=== PATIENT | male | born 1955 | race Caucasian/White ===

== ENCOUNTER 2017-01-07 13:15 | Inpatient (IN) | payer OTHER ==
[2017-01-07] MEDS ORDERED: NS 1,000 ML IV ONE (13:20)
[2017-01-07] MEDS ORDERED: ASPIRIN EC 325 MG TAB PO ONE ×2 (13:20→13:46)
[2017-01-07] MEDS ORDERED: FAMOTIDINE 20 MG TAB PO ONE (13:20)
[2017-01-07] MEDS ORDERED: DIAZEPAM 5 MG TAB PO ONE (13:20)
[2017-01-07] MEDS ORDERED: diphenhydrAMINE 25 MG CAP PO ONE ×2 (13:20→13:46)
--- NOTE | 2017-01-07 13:38 | CPEKG ---
Heart Rate: 66 RR Interval: 909 P-R Interval: 156 QRSD Interval: 152 QT Interval: 436 QTC Interval: 457 P [place]: 3 QRS [place]: -67 T Wave [place]: 48 EKG Severity - ABNORMAL ECG - EKG Impression: SINUS RHYTHM EKG Impression: RBBB AND LAFB EKG Impression: LATERAL INFARCT, OLD Electronically Signed By: Leonardo Beaver 08-Jan-2017 12:00:22
[2017-01-07] MEDS ORDERED: DIAZEPAM 5 MG TAB ONE (13:46)
[2017-01-07] MEDS ORDERED: FAMOTIDINE 20 MG TAB ONE (13:46)
[2017-01-07 13:52] LABS: % IMMATURE GRANULYOCYTES 0.3 % (0.0-1.1); ABSOLUTE IMMATURE GRANULOCYTES 0.02 10^3/uL (0.00-0.10); ADD DIFF? NO; ADD MORPH? NO; ADD SCAN? NO; ATYPICAL LYMPHOCYTE FLAG 0 (0-99); FRAGMENT RBC FLAG 0 (0-99); HEMATOCRIT 50.1 % (40.0-51.0); HEMOGLOBIN 16.4 g/dL (13.7-17.5); LEFT SHIFT FLG 0 (0-99); LIPEMIA HEMOLYSIS FLAG 80 (0-99); MEAN CELL HEMOGLOBIN 29.2 pg (27.9-34.1); MEAN CELL HEMOGLOBIN CONCENTR. 32.7 g/dL (32.4-36.7); MEAN CELL VOLUME 89.1 fL (81.5-99.8); MEAN PLATELET VOLUME 9.8 fL (8.7-11.7); PLATELET CLUMPS FLAG 0 (0-99); PLATELET COUNT 238 10^3/uL (150-400); RED BLOOD CELL COUNT 5.62 10^6/uL (4.40-6.38)
[2017-01-07 14:01] LABS: INR 0.98 (0.83-1.16); PROTIME(PATIENT) 12.9 SEC (12.0-15.0)
[2017-01-07] MEDS ORDERED: LIDOCAINE 1% 300 MG/30 ML SDV ONE (14:07)
[2017-01-07] MEDS ORDERED: fentaNYL 100 MCG/2 ML INJ ONE (14:07)
[2017-01-07] MEDS ORDERED: MIDAZOLAM 2 MG/2 ML VIAL ONE (14:07)
[2017-01-07] MEDS ORDERED: VERAPAMIL 5 MG/2 ML VIAL ONE (14:07)
[2017-01-07] MEDS ORDERED: IOPAMIDOL (ISOVUE-370) 150 ML BTL IV ONE (14:08)
[2017-01-07] MEDS ORDERED: HEPARIN 10,000 UNIT/10 ML MDV ONE (14:08)
[2017-01-07 14:12] LABS: ANION GAP 14 mEq/L (8-16); CARBON DIOXIDE 22 mEq/l (22-31); CHLORIDE 107 mEq/L (97-110); CHOLESTEROL 220 mg/dL (140-220); CHOLESTEROL/HDL RATIO 3.38 RATIO (1.00-4.97); CREATININE 0.9 mg/dL (0.7-1.3); GLOMERULAR FILTRATION RATE > 60; GLUCOSE 97 mg/dL (70-100); HIGH DENSITY LIPOPROTEIN 65 mg/dL (40-65); LDL/HDL RATIO 2.23 RATIO (1.00-3.64); LOW DENSITY LIPOPROTEIN 145 mg/dL (80-100); MAGNESIUM 2.3 mg/dL (1.6-2.3); NON-HIGH DENSITY LIPOPROTEIN 155 mg/dL (90-129); POTASSIUM 4.5 mEq/L (3.5-5.2); SODIUM 143 mEq/L (134-144); TRIGLYCERIDE 54 mg/dL (40-150); VERY LOW DENSITY LIPOPROTEINS 10 mg/dL (8-25)
[2017-01-07] MEDS ORDERED: ONDANSETRON DISINTEGRATING 4 MG TAB PO PRN (17:50)
[2017-01-07] MEDS ORDERED: ONDANSETRON 4 MG/2 ML VIAL IVP PRN (17:50)
[2017-01-07] MEDS ORDERED: NITROGLYCERIN 0.4 MG BTL SL PRN (17:50)
[2017-01-07] MEDS ORDERED: ATROPINE SULFATE 1 MG/10 ML SYR IVP PRN (17:50)
--- NOTE | 2017-01-07 19:59 | CPIP ---
[f rep st] INVASIVE CARDIAC PROCEDURE DATE OF PROCEDURE: 01/07/2017 PROCEDURE PERFORMED: 1. Selective coronary angiography. 2. Left heart catheterization. 3. Left ventriculogram. 4. TR band arteriotomy repair. COMPLICATIONS: None. This is a right wrist approach. INDICATIONS/APPROPRIATE USE CRITERIA: The patient has had unstable angina with CCS Class 4 symptoms of angina and is suspected to have an unstable coronary circulation. The indication for the cathet erization is unstable angina and probably preinfarction angina. PROCEDURE IN DETAIL: After informed consent was obtained and n.p.o. status was confirmed, the regio n of the right wrist was cleaned, prepped, and draped in sterile fashion. Approximately 5 cc of 1% lidocaine were utilized for local anesthesia. The patient then underwent the previously mentioned d iagnostic procedure with use of JR4, JL3.5, and a 5-Bulgarian pigtail catheter. Standard wire exchange technique was utilized for all catheter exchanges. The right coronary artery is dominant giving rise to the posterior descending and posterolateral ketty tricular branches. It is a large vessel approximately 3.5 mm in size proximally without evidence of flow-limiting obstruction, dissection, or thrombus. The left main coronary lumen is approximately 5 mm in size and trifurcate into an LAD, circumflex, and ramus system. There is severe ostial disea se of all 3 of those blood vessels making his coronary anatomy consistent with a left main equivalen t. There is at least a 70% to 80% LAD lesion, a 90% ostial ramus intermedius stenosis, and an 85% o stial left circumflex lesion. There is HIEU-3 flow to all of the blood vessels. The LAD diagonal i s the largest blood vessel in the anterior and anterolateral wall and is approximately 3 mm in size. After the diagonal takes off from the LAD, there is an ostial LAD lesion, which is at least 70% to 80% stenosed with more diffuse disease distal to that lesion, after which, the vessel is quite smal l and approximately 2 mm in size and may be partially intramyocardial, although obviously that is di fficult to tell with selective angiography. The left circumflex gives rise to an important obtuse m arginal branch, which is severely disease downstream as well with a 70% to 80% lesion involving the circumflex just as it exits the AV groove. The patient underwent left heart catheterization demonstrating elevated left ventricular end-diastol ic pressure measured at 29 mmHg. The patient underwent left ventriculogram in the BROUSSARD projection de monstrating preserved left ventricular systolic function and ejection fraction 65%. No resting segm ental wall motion abnormalities are identified. There is evidence of mitral regurgitation, which is likely catheter induced and also related to the pressurized left ventricular injection. FINAL IMPRESSION: Severe resighini vessel coronary disease primarily involving the left coronary syste m with ostial obstruction of the left anterior descending, a small ramus intermedius, and a circumfl ex obtuse marginal system. I would recommend that the patient have a consultation for reverse saphe nous vein graft to the circumflex obtuse marginal, reverse saphenous vein graft bypass to the diagon al, left internal mammary artery to the left anterior descending, and consideration of bypass of the small ramus intermedius vessel. Because of the patient's stuttering pain at rest, I do think he sh ould be admitted over January 08 and planned for subcutaneous Lovenox in full cardiovascular dos es at 1 mg/kg subcu b.i.d. That should be initiated tomorrow as he did receive heparin during this procedure and plan for a bypass surgery sometime on Saturday, sooner if the patient has further sym ptoms of unstable angina at rest that cannot be controlled with medication. /[id number]/MODL
[2017-01-08 05:46] LABS: INR 1.01 (0.83-1.16); PROTIME(PATIENT) 13.2 SEC (12.0-15.0)
[2017-01-08 05:47] LABS: APTT 26.4 SEC (23.0-38.0)
[2017-01-08 06:16] LABS: COLOR PALE YELLOW; LEUKOCYTE ESTERASE,URINE NEGATIVE (NEGATIVE); NITRITE,URINE NEGATIVE (NEGATIVE)
--- NOTE | 2017-01-08 06:38 | CPEKG ---
Heart Rate: 62 RR Interval: 968 P-R Interval: 156 QRSD Interval: 148 QT Interval: 440 QTC Interval: 447 P [place]: 12 QRS [place]: -66 T Wave [place]: 46 EKG Severity - ABNORMAL ECG - EKG Impression: SINUS RHYTHM EKG Impression: RBBB AND LAFB EKG Impression: LATERAL INFARCT, OLD Electronically Signed By: Leonardo Beaver 08-Jan-2017 12:00:27
[2017-01-08] MEDS: LISINOPRIL 40 MG TAB PO SCH (08:54)
[2017-01-08] MEDS: ASPIRIN 81 MG CHEWABLE TAB PO SCH (08:54)
--- NOTE | 2017-01-08 10:05 | GCON ---
[f rep st] CONSULTATION DATE OF CONSULTATION: 01/08/2017 Patient seen at the request of Dr. Roche with the patient's permission. IMPRESSION: 1. Class 3 to 4 angina pectoris with severe 2-vessel disease. 2. Obesity. 3. Likely non-insulin dependent diabetes mellitus. 4. Cerebrovascular accident. 5. History of bifascicular block. RECOMMENDATIONS: This gentleman should undergo coronary artery revascularization on this admission. Forty-five minutes was spent discussing it with the patient at length. Risks and complications we re reviewed per consult. CHIEF COMPLAINT: This is a gentleman who began experiencing exertional chest discomfort and arm num bness approximately 6 weeks ago. He has had a half a dozen episodes with activity. He attributed i t to indigestion and during his visit with Sol Roe, described the discomfort which subsequentl y led to catheterization. MEDICAL HISTORY: As stated. SURGERIES: He has no prior surgeries. ALLERGIES: Denied. SOCIAL HISTORY: He smoked for approximately 12 years, quitting in the 1980s. 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 FAMILY HISTORY: Noncontributory. He is adopted and knows nothing about his natural parents. REVIEW OF SYSTEMS: At the present time, he admits to slight chest discomfort at rest. He denies sh ortness of breath. All other systems are unremarkable. PHYSICAL EXAMINATION: GENERAL: This is a moderately overweight, middle-aged gentleman, sitting upr ight, quite pleasant, in no apparent distress. VITAL SIGNS: 160/88, heart rate 72, respirations 19, O2 saturation was 94% on room air. Carotid ultrasound reveals 50% to 69% left internal carotid stenosis by ultrasound, 70% to 89% right internal carotid stenosis by ultrasound with severe calcific plaque noted bilaterally. Vertebrals showed antegrade flow. Chest x-ray is pending. CAT scan of the carotids is pending. EKG reveals s inus rhythm with right bundle and left anterior fascicular block and old lateral infarct. Please se e cath report for details. /[id number]/MODL
[2017-01-08] MEDS ORDERED: IOPAMIDOL (ISOVUE 370) 100 ML BTL IV ONE (10:26)
--- NOTE | 2017-01-08 11:23 | ECHO ---
[id number] + + [address] : : [place] [address] : : [phone] + + Adult Echocardiographic Report + ---+ :Name: TAVIA GOODE JStudy Date: 01/08/2017 10:02 AM : : Hospital Admission Number: [id number] : :: 1955 Gender: Male Height: 73 in : :Age: 61 yrs Race: WH Weight: 225 l b : :Reason For Study: Eval LV Fx : : BSA: 2.3 mete rs2: :History: Chest Pain : + ---+ MMode/2D Measurements \T\ Calculations IVSd: 1.0 cm LVIDd: 4.1 cm FS: 39.9 % Ao root diam: 3.0 cm LVPWd: 1.0 cm LVIDs: 2.5 cm EDV(Teich): 74.2 ml ACS: 1.5 cm ESV(Teich): 21.5 ml EF(Teich): 71.0 % Normal Measurement Values: + + :LVIDd (3.5-5.7cm) IVSd (0.6-1.1cm) LVPWd (0.6-1.1cm) Aortic Root (2.0-3.7cm)Left Atrium (1.5-4.0cm): :LV Vol(d) (76-115ml) LV Vol(s) (29-48ml) Ejec Fraction (50-65%)PV José (0.6- 1.2m/s) TV José (0.4-1.0m/s) : :MV E José (0.8-1.0m/s)MV A José (0.3-1.0m/s)LVOT José (0.7-1.2m/s) Asc Ao José ( 0.9-1.8m/s) : + + Doppler Measurements \T\ Calculations MV E max josé: 77.5 cm/sec PA V2 max: 103.2 cm/sec MV A max josé: 78.0 cm/sec PA max P.3 mmHg MV E/A: 0.99 Left Ventricle The left ventricle is normal in size and function. There is normal left ventricular wall thickness. The left ventricular ejection fraction is normal. There is Doppler evidence for diastolic dysfunction. Ejection Fraction = 71%. No regional wall motion abnormalities noted. Right Ventricle The right ventricle is normal in size and function. Atria The left atrial size is normal. Right atrial size is normal. Mitral Valve There is mild mitral annular calcification. There is no mitral regurgitation noted. Tricuspid Valve Normal tricuspid valve. There is trace tricuspid regurgitation. Right ventricular systolic pressure is normal. Aortic Valve The aortic valve is normal in structure and function. There is no aortic stenosis. There is no aortic insufficiency. Pulmonic Valve The pulmonic valve is not well visualized. There is no pulmonic valvular regurgitation. Great Vessels The aortic root is normal size. Pericardium/Pleural There is no pericardial effusion. Conclusion A complete two-dimensional transthoracic echocardiogram was performed (2D, M-mode, Doppler and color flow Doppler). Clinical correlation is recommended. (1) Left ventricular systolic ejection fraction was normal (>70%) - normal wall motion (2) No left ventricular hypertrophy (3) Diastolic dysfunction was present (4) Normal right ventricular size and function (5) Normal atrial dimensions (6) Mild mitral annular calcification (no stenosis) with no appreciable regurgitation (7) Trileaflet aortic valve without sclerosis or insufficiency (8) Physiologic tricuspid regurgitation - RVSP was within normal limits (9) Poor visualization of the pulmonic valve (10) No comparison echocardiograms Final Reading Physician: Surya Jackson signed on 01/08/2017 11:22 AM Ordering Physician: Emmett Roche Performed By: Natanael Muller, LATASHACS
--- NOTE | 2017-01-08 13:02 | PDCARPN ---
Cardiology Progress Note Chief Complaint: obstructive CAD Assessment/Plan: Assessment: 1. Obstructive CAD in essence left main equivalent will need bypass surgery. 2. Carotid disease by ultrasound... CT angio is pending Dr. Maurer will decide about that issue prior to surgery tomorrow... 3. sub conjunctival hemorrhage in left eye.... painless Plan: As Above. 01/08/17 12:54 Reviewed/Discussed With: family, hospitalist, multidisciplinary team Time Spent With Patient: 30 with family patient etc.... Objective: Vital Signs (8 Hrs) Temp Pulse Resp BP Pulse Ox 01/08/17 12:00 36.7 C 71 17 130/93 H 96 01/08/17 08:00 36.6 C 72 19 160/88 H 94 Intake/Output (24 Hrs) 01/07/17 01/08/17 01/09/17 05:59 05:59 05:59 Intake Total 530 Output Total 100 Balance 430 Intake: Oral (ml) 530 Output: Urine (ml) 100 Urinal 100 Other: Weight 102.2 kg Number of Voids Toilet 2 Result Diagrams: 01/07/17 13:45 01/07/17 13:45 - Physical Exam Constitutional: WDWN, no apparent distress Ears, Nose, Mouth, Throat: moist mucous membranes, other (sub conjunctival hemorrhage) Cardiovascular: regular rate and rhythm, no murmurs, no rubs, other (radial cath site good pulse and no significant bleeding), No carotid bruit (i did not hear a buit over either carotid) Respiratory: clear to auscultate bilat Gastrointestinal: normoactive bowel sounds, no tenderness Neurologic: AAOx3 Psychiatric: cooperative, interactive, following commands, not anxious - . Pending Discharge Within 24 Hours: No Pending Discharge Within 48 Hours: No ICD10 Worksheet Patient Problems: Problems Problem Status Onset CAD (coronary artery disease) Acute
[2017-01-08] MEDS: MUPIROCIN 2% 22 GM OINT NS SCH (20:15)
[2017-01-08] MEDS ORDERED: NITROGLYCERIN/DEXTROSE 250 ML IV PRN (21:00)
[2017-01-08] MEDS ORDERED: CHLORHEXIDINE GLUC HIBICLENS 118 ML BTL TP SCH (21:00)
[2017-01-09 04:59] LABS: ANION GAP 8 mEq/L (8-16); CALCIUM 9.5 mg/dL (8.5-10.4); CARBON DIOXIDE 24 mEq/l (22-31); CHLORIDE 110 mEq/L (97-110); CREATININE 0.9 mg/dL (0.7-1.3); GLOMERULAR FILTRATION RATE > 60; GLUCOSE 101 mg/dL (70-100); POTASSIUM 4.3 mEq/L (3.5-5.2); SODIUM 142 mEq/L (134-144)
[2017-01-09] MEDS ORDERED: ALBUMIN 5% 250 ML BOTTLE IV ONE (06:41)
[2017-01-09] MEDS ORDERED: PROTAMINE SULFATE 50 MG/5 ML VIAL IVP ONE ×2 (06:41→16:55)
[2017-01-09] MEDS ORDERED: ADENOSINE 6 MG/2 ML VIAL ONE (06:42)
[2017-01-09] MEDS ORDERED: niCARdipine/NACL/200 ML BAG IV ONE (06:42)
[2017-01-09] MEDS ORDERED: CALCIUM CHLORIDE 1 GM/10 ML INJ ONE (06:42)
[2017-01-09] MEDS ORDERED: MILRINONE/DEXTROSE/100 ML BAG IV ONE (06:42)
[2017-01-09] MEDS ORDERED: MAGNESIUM SULFATE 1 GM/2 ML VIAL ONE (06:42)
[2017-01-09] MEDS ORDERED: AMINOCAPROIC ACID 5 GM/20 ML VIAL ONE (06:42)
[2017-01-09] MEDS ORDERED: NA BICARBONATE 50 MEQ/50 ML VIAL ONE (06:42)
[2017-01-09] MEDS ORDERED: DOPamine/DEXTROSE/250 ML BAG IV ONE (06:42)
[2017-01-09] MEDS ORDERED: LIDOCAINE 2% 100 MG/5 ML SYR ONE (06:42)
[2017-01-09] MEDS ORDERED: CITRATE DEXTROSE SOLN 500 ML BAG ONE (06:42)
[2017-01-09] MEDS ORDERED: POTASSIUM Cl (KCl) 20 MEQ/50 ML BAG IV ONE (06:42)
[2017-01-09] MEDS ORDERED: AMIODARONE HCL 150 MG/3 ML VIAL ONE (06:42)
[2017-01-09] MEDS ORDERED: methylPREDNISolone SOD SUCC 1 GM/8 ML VIAL ONE (06:42)
[2017-01-09] MEDS ORDERED: HEPARIN 10,000 UNIT/10 ML MDV ONE (06:43)
[2017-01-09] MEDS ORDERED: ceFAZolin 1 GM VIAL ONE (06:43)
[2017-01-09] MEDS: ASPIRIN 81 MG CHEWABLE TAB PO SCH (10:06)
[2017-01-09] MEDS: LISINOPRIL 40 MG TAB PO SCH (10:06)
[2017-01-09] MEDS: MUPIROCIN 2% 22 GM OINT NS SCH ×2 (10:09→22:45)
[2017-01-09] MEDS ORDERED: PAPAVERINE HCL 60 MG/2 ML SDV ONE (10:12)
[2017-01-09] MEDS ORDERED: VERAPAMIL 5 MG/2 ML VIAL ONE (10:12)
[2017-01-09] MEDS ORDERED: MINERAL OIL 10 ML VIAL ONE (10:12)
[2017-01-09] MEDS ORDERED: niCARdipine/NACL 200 ML IV ONE (11:30)
[2017-01-09] MEDS ORDERED: CITRATE DEXTROSE SOLN 500 ML BAG MISC ONE (11:30)
[2017-01-09] MEDS ORDERED: AMINOCAPROIC ACID 5 GM/20 ML VIAL IV ONE (11:30)
[2017-01-09] MEDS ORDERED: MANNITOL 25% 12.5 GM/50 ML VIAL IV ONE (11:30)
[2017-01-09] MEDS ORDERED: ceFAZolin 2 GM/DEXTROSE 100 ML IV ONE (11:30)
[2017-01-09] MEDS ORDERED: PHENYLEPHRINE HCL 50 MG in NS 250 ML IV ONE (11:30)
[2017-01-09] MEDS ORDERED: NOREPINEPHRINE BITARTRATE 16 MG in NS 250 ML IV ONE (11:30)
[2017-01-09] MEDS ORDERED: INSULIN REGULAR HUMAN 100 UNIT in NS 100 ML IV ONE (11:30)
[2017-01-09] MEDS ORDERED: NS 1,000 ML IV ONE (11:30)
[2017-01-09] MEDS ORDERED: SODIUM BICARBONATE 20 MEQ, LIDOCAINE 1% 10 ML in NORMOSOL-R 1,000 ML MISC ONE (11:30)
[2017-01-09] MEDS ORDERED: VERAPAMIL 5 MG, NITROGLYCERIN 2.5 MG, HEPARIN 500 UNIT, SODIUM BICARBONATE 0.2 MEQ in L... MISC ONE (11:30)
[2017-01-09 12:31] LABS: HEMOGLOBIN A1C 6.2 % (4.0-6.0)
[2017-01-09] MEDS ORDERED: MIDAZOLAM 2 MG/2 ML VIAL ONE ×2 (13:15→13:29)
--- NOTE | 2017-01-09 13:21 | PDANEPAE ---
ANE History of Present Illness here for CABG ANE Past Medical History - Cardiovascular History Hx Hypertension: Yes Hx Arrhythmias: No Hx Chest Pain: Yes Hx Coronary Artery / Peripheral Vascular Disease: Yes Hx CHF / Valvular Disease: No Hx Palpitations: No - Pulmonary History Hx COPD: No Hx Asthma/Reactive Airway Disease: No Hx Recent Upper Respiratory Infection: No Hx Oxygen in Use at Home: No Hx Sleep Apnea: Yes Sleep Apnea Screening Result - Last Documented: Positive - Endocrine History Hx Diabetes: No Hypothyroid: No Hyperthyroid: No Obesity: no, moderate - Renal History Hx Renal Disorders: No - Liver History Hx Hepatic Disorders: No - Neurological & Psychiatric Hx Hx Neurological and Psychiatric Disorders: No - Cancer History Hx Cancer: No - GI History Hx Gastrointestinal Disorders: No - Chronic Pain History Chronic Pain: No ANE Review of Systems Review of systems is: negative - Exercise capacity Exercise capacity: <4 METS ANE Patient History - Allergies Allergies/Adverse Reactions: No Known Allergies Allergy (Unverified 01/27/10 19:58) - Home Medications Home medications: home medication list seen and reviewed Home Medications: Aspirin [Aspirin 81mg (*)] 81 mg PO DAILY 01/07/17 [Last Taken 01/07/17 05:30] Lisinopril [Zestril 40 mg (*)] 40 mg PO DAILY 01/07/17 [Last Taken 01/07/17 05: 30] Loratadine [Claritin 10 mg] 10 mg PO DAILY 01/07/17 [Last Taken 01/07/17] Multivitamins [Multivitamin (*)] 1 each PO DAILY 01/07/17 [Last Taken 01/07/17] - NPO status NPO Status: no food or drink >8 hours NPO Since - Liquids (Date): 01/08/17 NPO Since - Liquids (Time): 00:00 NPO Since - Solids (Date): 01/08/17 NPO Since - Solids (Time): 00:00 - Smoking Hx Smoking Status: Former smoker ANE Labs/Vital Signs - Labs Result Diagrams: 01/07/17 13:45 01/09/17 04:15 - Vital Signs Blood Pressure: 121/72 Heart Rate: 74 Respiratory Rate: 14 O2 Sat (%): 94 Height: 185 cm Weight: 99.7 kg ANE Physical Exam - Airway Neck exam: FROM Mallampati Score: Class 2 Mouth exam: normal dental/mouth exam - Pulmonary Pulmonary: no respiratory distress - Cardiovascular Cardiovascular: regular rate and rhythym - ASA Status ASA Status: IV ANE Anesthesia Plan Anesthesia Plan: general endotracheal anesthesia Lines/Monitors: arterial line, central line, LUIZ
[2017-01-09] MEDS ORDERED: MIDAZOLAM 2 MG/2 ML VIAL IVP ONE (13:22)
[2017-01-09] MEDS ORDERED: PROPOFOL/EMULSION 500 MG/50 ML BOTTLE IV ONE (13:25)
[2017-01-09] MEDS ORDERED: fentaNYL 100 MCG/2 ML INJ ONE ×5 (13:28→14:48)
[2017-01-09] MEDS ORDERED: KETAMINE 100 MG/10 ML SYR ONE (13:57)
[2017-01-09] MEDS ORDERED: PHENYLEPHRINE HCL 100 MCG/ML SYR ONE ×2 (14:11→17:03)
[2017-01-09] MEDS ORDERED: MAGNESIUM SULF 2 GM/WATER 50 ML BAG IV ONE (15:23)
[2017-01-09] MEDS ORDERED: DEXMEDETOMIDINE HCL 400 MCG in NS 100 ML IV ONE (16:30)
[2017-01-09] MEDS ORDERED: SODIUM BICARBONATE 50 MEQ/50 ML SYR ONE (17:02)
[2017-01-09] MEDS ORDERED: NITROGLYCERIN 50 MG/10 ML SDV IV ONE (17:02)
[2017-01-09] MEDS ORDERED: ESMOLOL HCL 100 MG/10 ML VIAL IV ONE (17:02)
[2017-01-09] MEDS ORDERED: SUGAMMADEX SODIUM 200 MG/2 ML VIAL IVP ONE (17:03)
[2017-01-09] MEDS ORDERED: MAGNESIUM SULF 2 GM/WATER 50 ML IV ONE (17:27)
[2017-01-09] MEDS ORDERED: METOCLOPRAMIDE 10 MG/2 ML VIAL IVP PRN (17:27)
[2017-01-09] MEDS ORDERED: PANTOPRAZOLE SODIUM 40 MG in NS 100 ML IV ONE (17:27)
[2017-01-09] MEDS ORDERED: D50W 25 GM/50 ML SYR IVP PRN (17:27)
[2017-01-09] MEDS ORDERED: LACTULOSE 20 GM/30 ML UDCUP PO PRN (17:27)
[2017-01-09] MEDS ORDERED: ACETAMINOPHEN 650 MG SUPP PR PRN (17:27)
[2017-01-09] MEDS ORDERED: SODIUM CL NASAL 45 ML BTL EACHNARE PRN (17:27)
[2017-01-09] MEDS ORDERED: MEPERIDINE 25 MG/ML SYR IVP PRN (17:27)
[2017-01-09] MEDS ORDERED: BISACODYL 10 MG SUPP PR PRN (17:27)
[2017-01-09] MEDS ORDERED: CEPACOL LOZENGE PO PRN (17:27)
[2017-01-09] MEDS ORDERED: POLYETHYLENE GLYCOL 3350 17 GM PKT PO PRN (17:27)
[2017-01-09] MEDS ORDERED: POTASSIUM Cl (KCl) 50 ML IV PRN (17:27)
[2017-01-09] MEDS ORDERED: MAGNESIUM HYDROXIDE 30 ML UDCUP PO PRN (17:27)
[2017-01-09] MEDS ORDERED: NS 1,000 ML IV SCH (17:30)
[2017-01-09] MEDS ORDERED: INSULIN REGULAR HUMAN 100 UNIT in NS 100 ML IV SCH (17:30)
--- NOTE | 2017-01-09 17:36 | POSTOPPROG ---
Post Op Note Date of Operation: 01/09/17 Surgeon: Rodrigo Maurer Noise Abatement Engineer: Manoj Anesthesiologist: Jr Anesthesia: GET(General Endotracheal) Pre-op Diagnosis: ASHD Procedure: CAB 3 Soria-Lad, Johanna-Dg, SVG-PLCX Lig MOON atriclip Inf/Abcess present in the surg proc area at time of surgery?: No EBL: Minimal Drains: Other (3 blakes)
[2017-01-09 18:12] LABS: CALCULATED OXYGEN SATURATION 98 % (92-95); O2 CONCENTRATIION 100 % (0-100)
--- NOTE | 2017-01-09 18:18 | CPEKG ---
Heart Rate: 81 RR Interval: 741 P-R Interval: 208 QRSD Interval: 146 QT Interval: 440 QTC Interval: 511 P [place]: 58 QRS [place]: -74 T Wave [place]: 26 EKG Severity - ABNORMAL ECG - EKG Impression: SINUS RHYTHM EKG Impression: RBBB AND LAFB Electronically Signed By: Leonardo Beaver 10-Jan-2017 15:53:50
[2017-01-09] MEDS: fentaNYL 100 MCG/2 ML INJ IVP PRN (19:24)
--- NOTE | 2017-01-09 19:51 | GOP ---
[f rep st] OPERATIVE REPORT DATE OF OPERATION: 01/09/2017 SURGEON: Rodrigo Maurer DO CHIEF UNDERWRITER: Nithin Aranda P.A.-C. ANESTHESIOLOGIST: Alvaro Norris M.D. PREOPERATIVE DIAGNOSIS: Unstable angina pectoris with 2-vessel coronary artery disease. POSTOPERATIVE DIAGNOSIS: Unstable angina pectoris with 2-vessel coronary artery disease. PROCEDURE PERFORMED: 1. Coronary artery bypass grafting x3, with left internal mammary artery to the left anterior desce nding, right internal mammary artery to the diagonal and saphenous vein graft to the posterolateral circumflex. 2. AtriClip to the left atrial appendage. 3. Endoscopic vein harvest. FINDINGS: INDICATIONS: The patient presented with crescendo angina. He was found to have high-grade left-terra ed disease. He was consented for surgery and kept in the hospital. DESCRIPTION OF PROCEDURE: He was brought to the operating room, intubated and monitoring lines were placed. He was prepped and draped in sterile classical manner. A sternotomy was performed. Both mammaries were harvested. They were 2.2-2.4 mm vessels with excel lent flow. The vein was harvested endoscopically from the right thigh by Shane Aranda, who first ass isted throughout the procedure. The patient was then cannulated and cardiopulmonary bypass was begun. Cardioplegic arrest was obtai dara with antegrade cardioplegia, topical hypothermia and systemic cooling. Initially, the circumfle x vessel was grafted. It was a 2.4 mm good quality vessel with vein end-to-side, which was then bro ught off the ascending aorta with a cross-clamp on. I then proceeded with grafting of the right int ernal mammary artery, bringing it across the anterior surface of the heart to the diagonal. The brittani gonal was a 2.5 mm vessel of good quality. This was then tacked to the epicardium. I then placed a n AtriClip 35 mm clamp across the left atrial appendage flush with the left atrium. It was free of thrombus on echo. I then grafted the LAD with a left internal mammary artery. The LAD was a smaller vessel measuring 1.8 mm in diameter in the mid segment where grafted. It was tacked to the epicardium. The cross-cl amp was removed with suction on the ascending aortic vent in Trendelenburg until no further air was identified. The patient was weaned from bypass. Heparin was reversed with protamine. The cannula was removed a nd oversewn. Two pleural and one mediastinal drain were placed. The thymic fat and pericardium wer e closed. The chest was closed in standard fashion. The patient was returned to the ICU in stable condition. /[id number]/MODL
[2017-01-09 20:06] LABS: BASE EXCESS -3.6 mEq/L (-2.5-2.5); BICARBONATE 21 mEq/L (22-26); MEASURED OXYGEN SATURATION 90 % (92-95); PCO2 39 mmHg (34-38); PO2 60 mmHg (65-75); TCO2 23 mEq/L (23-27)
[2017-01-09 20:07] LABS: END TIDAL CO2 40; O2 CONCENTRATIION 60 % (0-100); P/F RATIO 100 RATIO; PATIENT RATE 14; PRESSURE SUPPORT 7
[2017-01-09] MEDS: ALBUMIN 5% 250 ML IV PRN (20:30)
[2017-01-09] MEDS: ceFAZolin 2 GM/DEXTROSE 100 ML IV SCH (21:54)
--- NOTE | 2017-01-09 22:51 | POSTANESTH ---
Post Anesthetic Evaluation Cardiovascular Status: Normal, Stable Respiratory Status: Other, See Comment (INTUBATED, SEDATED) Level of Consciousness/Mental Status: Mildly Sleepy, Arousable Pain Control: Adequate, Prn Tx Ordered Nausea/Vomiting Control: Adequate, Prn Tx Ordered Complications Possibly Related to Anesthesia: None Noted
[2017-01-10] MEDS: OXYCODONE/APAP 5/325 TAB PO PRN (01:21)
[2017-01-10] MEDS: fentaNYL 100 MCG/2 ML INJ IVP PRN (04:08)
[2017-01-10] MEDS: HYDROCODONE/APAP 5/325 TAB PO PRN ×4 (04:08→23:19)
[2017-01-10 05:22] LABS: % IMMATURE GRANULYOCYTES 0.6 % (0.0-1.1); ABSOLUTE IMMATURE GRANULOCYTES 0.09 10^3/uL (0.00-0.10); ADD DIFF? NO; ADD MORPH? NO; ADD SCAN? NO; ATYPICAL LYMPHOCYTE FLAG 0 (0-99); FRAGMENT RBC FLAG 0 (0-99); HEMATOCRIT 38.9 % (40.0-51.0); HEMOGLOBIN 12.8 g/dL (13.7-17.5); LEFT SHIFT FLG 30 (0-99); LIPEMIA HEMOLYSIS FLAG 80 (0-99); MEAN CELL HEMOGLOBIN 29.4 pg (27.9-34.1); MEAN CELL HEMOGLOBIN CONCENTR. 32.9 g/dL (32.4-36.7); MEAN CELL VOLUME 89.2 fL (81.5-99.8); MEAN PLATELET VOLUME 10.2 fL (8.7-11.7); PLATELET CLUMPS FLAG 10 (0-99); PLATELET COUNT 150 10^3/uL (150-400); RED BLOOD CELL COUNT 4.36 10^6/uL (4.40-6.38); RED CELL DISTRIBUTION WIDTH 12.8 % (11.5-15.2)
[2017-01-10] MEDS: ceFAZolin 2 GM/DEXTROSE 100 ML IV SCH ×3 (05:24→22:27)
[2017-01-10] MEDS: HEPARIN 5,000 UNIT/0.5 ML SYR SC SCH ×3 (05:33→22:27)
[2017-01-10 05:35] LABS: ANION GAP 9 mEq/L (8-16); CALCIUM 8.6 mg/dL (8.5-10.4); CARBON DIOXIDE 21 mEq/l (22-31); CHLORIDE 114 mEq/L (97-110); CREATININE 0.9 mg/dL (0.7-1.3); GLOMERULAR FILTRATION RATE > 60; GLUCOSE 111 mg/dL (70-100); POTASSIUM 4.4 mEq/L (3.5-5.2); SODIUM 144 mEq/L (134-144)
[2017-01-10] MEDS: ALBUMIN 5% 250 ML IV PRN (06:36)
[2017-01-10] MEDS ORDERED: fentaNYL 50 MCG PATCH TD SCH (06:45)
--- NOTE | 2017-01-10 07:22 | SOAPPROG ---
SOAP Progress Note Assessment/Plan: POD #1: CABGx3 (SALAMANCA-LAD, MYNOR-D1, SVG-PLCX), AtriClip MOON, EVH right thigh, vein exposure left thigh Unstable angina s/p CABGx3 - Transfer to PCU this morning - Continue ASA, statin, BB to be added when better BP - DVT prophylaxis with Heparin SQ Acute blood loss anemia - Stable without the need for blood product transfusions Pre-diabetes (HgbA1c 6.2) - Discussed with pt the importance of lifestyle changes, including weight loss, diet changes, daily exercise, and the need for future monitoring Subjective: c/o incisional pain, denies SOB. Objective: Vital Signs Temp Pulse Resp BP Pulse Ox 37.6 C 78 14 105/59 L 94 01/10/17 06:00 01/10/17 06:00 01/10/17 06:00 01/10/17 06:00 01/10/17 06:00 Laboratory Results 01/10/17 05:05 01/10/17 05:05 01/09/17 01/10/17 01/11/17 05:59 05:59 05:59 Intake Total 600 2325 Output Total 200 2000 Balance 400 325 PT 13.2 SEC (12.0-15.0) 01/08/17 05:04 INR 1.01 (0.83-1.16) 01/08/17 05:04 Physical Exam - Physical Exam General Appearance: WD/WN, alert, no apparent distress EENT: No scleral icterus (R), No scleral icterus (L) Neck: normal inspection Respiratory: No respiratory distress Cardiac/Chest: regular rate, rhythm Abdomen: non-tender, soft, No distended Skin: normal color, warm/dry Extremities: No pedal edema Neuro/Psych: no motor/sensory deficits, alert, normal mood/affect, oriented x 3 ICD10 Worksheet Patient Problems: Problems Problem Status Onset CAD (coronary artery disease) Acute
[2017-01-10] MEDS ORDERED: traMADol 50 MG TAB PO PRN (08:39)
[2017-01-10] MEDS: PANTOPRAZOLE SODIUM 40 MG TAB PO SCH (08:47)
[2017-01-10] MEDS: ASPIRIN 81 MG CHEWABLE TAB PO SCH (08:47)
[2017-01-10] MEDS: MUPIROCIN 2% 22 GM OINT NS SCH ×2 (08:47→22:27)
[2017-01-10] MEDS: SENNOSIDES/DOCUSATE SODIUM TAB PO SCH (22:27)
[2017-01-11] MEDS: HYDROCODONE/APAP 5/325 TAB PO PRN ×3 (04:55→20:16)
[2017-01-11 04:59] LABS: % IMMATURE GRANULYOCYTES 0.7 % (0.0-1.1); ABSOLUTE IMMATURE GRANULOCYTES 0.11 10^3/uL (0.00-0.10); ADD DIFF? NO; ADD MORPH? NO; ADD SCAN? NO; ATYPICAL LYMPHOCYTE FLAG 0 (0-99); FRAGMENT RBC FLAG 0 (0-99); HEMATOCRIT 34.9 % (40.0-51.0); HEMOGLOBIN 11.5 g/dL (13.7-17.5); LEFT SHIFT FLG 30 (0-99); LIPEMIA HEMOLYSIS FLAG 80 (0-99); MEAN CELL HEMOGLOBIN 29.9 pg (27.9-34.1); MEAN CELL VOLUME 90.6 fL (81.5-99.8); MEAN PLATELET VOLUME 10.4 fL (8.7-11.7); PLATELET CLUMPS FLAG 0 (0-99); PLATELET COUNT 134 10^3/uL (150-400); RED BLOOD CELL COUNT 3.85 10^6/uL (4.40-6.38); RED CELL DISTRIBUTION WIDTH 13.2 % (11.5-15.2)
[2017-01-11 05:33] LABS: ANION GAP 9 mEq/L (8-16); CARBON DIOXIDE 26 mEq/l (22-31); CHLORIDE 107 mEq/L (97-110); GLOMERULAR FILTRATION RATE > 60; GLUCOSE 125 mg/dL (70-100); POTASSIUM 4.3 mEq/L (3.5-5.2); SODIUM 142 mEq/L (134-144)
[2017-01-11] MEDS: ceFAZolin 2 GM/DEXTROSE 100 ML IV SCH (06:42)
[2017-01-11] MEDS: HEPARIN 5,000 UNIT/0.5 ML SYR SC SCH ×3 (06:43→20:16)
[2017-01-11] MEDS ORDERED: FUROSEMIDE 40 MG/4 ML VIAL IVP ONE (07:00)
[2017-01-11] MEDS ORDERED: POTASSIUM CL 20 MEQ TAB PO ONE (07:00)
--- NOTE | 2017-01-11 07:09 | SOAPPROG ---
SOAP Progress Note Assessment/Plan: Assessment: POD#2 CABGx3 (SALAMANCA-LAD, MYNOR-D1, SVG-PLCX), AtriClip MOON, EVH right thigh, vein exposure left thigh Unstable angina s/p CABGx3 with 2 arterial grafts - Moderate volume overload. - Secondary prevention with ASA, statin, and BB as tolerated Acute blood loss anemia - Stable without the need for blood product transfusions - DVT prophylaxis with Heparin SQ Pre-diabetes (HgbA1c 6.2%) - Postop hyperglycemia managed with low dose insulin gtt, transitioning to SSI. No correctional needs and monitoring suspended. - Counseled re therapeutic lifestyle changes, including weight loss, carb control diet, daily exercise, and the need for future screening. Plan: Begin daily diuresis. Start metoprolol 12.5 mg BID w conservative hold parameters. Inc activity. Intensify pulm toilet. Consider removal of pleural tubes later today. Dispo - Anticipate home in 2 days. 01/11/17 07:04 Subjective: Feels well. Excellent appetite. Satisfactory analgesia. Improving IS, though still < 750. Tolerating light activity without dizziness. Objective: Vital Signs Temp Pulse Resp BP Pulse Ox 37.1 C 84 20 121/63 H 95 01/11/17 04:00 01/11/17 04:00 01/11/17 04:00 01/11/17 04:00 01/11/17 04:00 Laboratory Results 01/11/17 04:45 01/11/17 04:45 01/10/17 01/11/17 01/12/17 05:59 05:59 05:59 Intake Total 2325 2707 Output Total 1999 1535 Balance 325 1172 PT 13.2 SEC (12.0-15.0) 01/08/17 05:04 INR 1.01 (0.83-1.16) 01/08/17 05:04 HR, rhythm and BP stable. Minimal suppl O2 req. CXR-> hypoventilation, bibasilar atelectasis, lg gastric air. CTOP nearing removal criteria. Positive fluid balance. +5 kg overall. Labs ok. - Pending Discharge Pending Discharge Within 48 Hours: Yes Pending Discharge Date: 01/13/17 Pending Discharge Time: 11:00 Physical Exam - Physical Exam General Appearance: alert, no apparent distress Respiratory: decreased breath sounds (bases), other (blakes x 3 to bulb suction , serosang drainage. ) Cardiac/Chest: regular rate, rhythm, other (Sternotomy CDI. Vwires intact.) Abdomen: non-tender, soft Skin: warm/dry Extremities: swelling (1-2+ dependent. Bilat venotomies CDI.) ICD10 Worksheet Patient Problems: Problems Problem Status Onset CAD (coronary artery disease) Acute
[2017-01-11] MEDS: METOPROLOL TARTRATE 25 MG TAB PO SCH ×2 (07:58→20:17)
[2017-01-11] MEDS: PANTOPRAZOLE SODIUM 40 MG TAB PO SCH (07:58)
[2017-01-11] MEDS: MULTIVITAMINS 1 EACH TAB PO SCH (07:59)
[2017-01-11] MEDS: ASPIRIN 81 MG CHEWABLE TAB PO SCH (07:59)
[2017-01-11] MEDS: SENNOSIDES/DOCUSATE SODIUM TAB PO SCH ×2 (07:59→20:14)
[2017-01-11] MEDS: FUROSEMIDE 40 MG TAB PO SCH (15:26)
[2017-01-11] MEDS: POTASSIUM CL 20 MEQ TAB PO SCH ×2 (15:33→20:14)
[2017-01-12] MEDS: OXYCODONE/APAP 5/325 TAB PO PRN (04:25)
[2017-01-12] MEDS: HEPARIN 5,000 UNIT/0.5 ML SYR SC SCH ×3 (04:25→20:41)
[2017-01-12 05:52] LABS: POTASSIUM 4.1 mEq/L (3.5-5.2)
--- NOTE | 2017-01-12 07:50 | SOAPPROG ---
SOAP Progress Note Assessment/Plan: POD #3: CABGx3 (SALAMANCA-LAD, MYNOR-D1, SVG-PLCX), AtriClip MOON, EVH right thigh, vein exposure left thigh Unstable angina s/p CABGx3 - CTs and PW to be removed today - Continue ASA, statin, BB - DVT prophylaxis with Heparin SQ Acute blood loss anemia - Stable without the need for blood product transfusions Pre-diabetes (HgbA1c 6.2) - Discussed with pt the importance of lifestyle changes, including weight loss, diet changes, daily exercise, and the need for future monitoring Abdominal distension, early narcotic induced ileus - Fentanyl patch removed - Limit PO narcotics - Ambulation - Diet switched to clears - KUB pending Disposition - Home Saturday without services Subjective: Denies N/V. Passing flatus and belching, denies BM. Pain well-controlled. Objective: Vital Signs Temp Pulse Resp BP Pulse Ox 36.8 C 85 20 121/67 H 92 01/12/17 04:00 01/12/17 04:00 01/12/17 04:00 01/12/17 04:00 01/12/17 04:00 Laboratory Results 01/11/17 04:45 01/12/17 04:30 01/11/17 01/12/17 01/13/17 05:59 05:59 05:59 Intake Total 2707 950 Output Total 1535 640 Balance 1172 310 PT 13.2 SEC (12.0-15.0) 01/08/17 05:04 INR 1.01 (0.83-1.16) 01/08/17 05:04 - Pending Discharge Pending Discharge Within 48 Hours: Yes Pending Discharge Date: 01/14/17 Pending Discharge Time: 11:00 Physical Exam - Physical Exam General Appearance: WD/WN, alert, no apparent distress EENT: No scleral icterus (R), No scleral icterus (L) Neck: normal inspection Respiratory: No respiratory distress Cardiac/Chest: regular rate, rhythm Abdomen: non-tender, soft, distended Skin: normal color, warm/dry Extremities: pedal edema Neuro/Psych: no motor/sensory deficits, alert, normal mood/affect, oriented x 3 ICD10 Worksheet Patient Problems: Problems Problem Status Onset CAD (coronary artery disease) Acute
[2017-01-12] MEDS ORDERED: POTASSIUM CL 20 MEQ/15 ML UDCUP PO ONE (09:32)
[2017-01-12] MEDS ORDERED: FUROSEMIDE 100 MG/10 ML VIAL IVP ONE ×2 (09:32→15:24)
[2017-01-12] MEDS ORDERED: FUROSEMIDE 80 MG in D5W 50 ML IV ONE (10:00)
[2017-01-12] MEDS: SENNOSIDES/DOCUSATE SODIUM TAB PO SCH ×2 (10:35→20:38)
[2017-01-12] MEDS: ASPIRIN 81 MG CHEWABLE TAB PO SCH (10:35)
[2017-01-12] MEDS: FUROSEMIDE 40 MG TAB PO SCH ×2 (10:36→16:14)
[2017-01-12] MEDS: METOPROLOL TARTRATE 25 MG TAB PO SCH ×2 (10:36→20:38)
[2017-01-12] MEDS: PANTOPRAZOLE SODIUM 40 MG TAB PO SCH (10:36)
[2017-01-12] MEDS: ACETAMINOPHEN 325 MG TAB PO PRN (10:42)
[2017-01-12] MEDS: POTASSIUM CL 20 MEQ TAB PO SCH ×2 (10:43→16:03)
[2017-01-12] MEDS: MULTIVITAMINS 1 EACH TAB PO SCH (10:43)
[2017-01-12 16:40] LABS: POTASSIUM 3.8 mEq/L (3.5-5.2)
[2017-01-12] MEDS ORDERED: POTASSIUM CL 20 MEQ TAB PO ONE (16:46)
[2017-01-12] MEDS: HYDROCODONE/APAP 5/325 TAB PO PRN ×2 (20:39→21:25)
[2017-01-13] MEDS: HEPARIN 5,000 UNIT/0.5 ML SYR SC SCH (05:35)
[2017-01-13 05:51] LABS: HEMATOCRIT 33.9 % (40.0-51.0); HEMOGLOBIN 11.3 g/dL (13.7-17.5); MEAN CELL HEMOGLOBIN 29.9 pg (27.9-34.1); MEAN CELL HEMOGLOBIN CONCENTR. 33.3 g/dL (32.4-36.7); MEAN CELL VOLUME 89.7 fL (81.5-99.8); RED BLOOD CELL COUNT 3.78 10^6/uL (4.40-6.38); RED CELL DISTRIBUTION WIDTH 12.9 % (11.5-15.2)
[2017-01-13 06:13] LABS: ANION GAP 9 mEq/L (8-16); CARBON DIOXIDE 28 mEq/l (22-31); CHLORIDE 103 mEq/L (97-110); CREATININE 0.9 mg/dL (0.7-1.3); GLOMERULAR FILTRATION RATE > 60; GLUCOSE 113 mg/dL (70-100); POTASSIUM 3.9 mEq/L (3.5-5.2); SODIUM 140 mEq/L (134-144)
--- NOTE | 2017-01-13 08:13 | SOAPPROG ---
SOAP Progress Note Assessment/Plan: POD #4: CABGx3 (SALAMANCA-LAD, MYNOR-D1, SVG-PLCX), AtriClip MOON, EVH right thigh, vein exposure left thigh Unstable angina s/p CABGx3 - Continue ASA, statin, BB - DVT prophylaxis with Eliquis - All wires/tube removed - Continue Lasix IV for dependent edema Acute blood loss anemia - Stable without the need for blood product transfusions Pre-diabetes (HgbA1c 6.2) - Discussed with pt the importance of lifestyle changes, including weight loss, diet changes, daily exercise, and the need for future monitoring Abdominal distension, early narcotic induced ileus - Resolved with supportive care Post-operative rapid atrial fibrillation - Amiodarone started and BB increased - Eliquis for thromboprophylaxis Disposition - Home Saturday without services Subjective: Denies N/V, abd pain. Still no BM. Denies CP/SOB. Objective: Vital Signs Temp Pulse Resp BP Pulse Ox 36.6 C 87 19 110/65 96 01/13/17 07:49 01/13/17 07:49 01/13/17 07:49 01/13/17 07:49 01/13/17 07:49 Laboratory Results 01/13/17 05:30 01/13/17 05:30 01/12/17 01/13/17 01/14/17 05:59 05:59 05:59 Intake Total 950 250 Output Total 640 3200 Balance 310 -2950 PT 13.2 SEC (12.0-15.0) 01/08/17 05:04 INR 1.01 (0.83-1.16) 01/08/17 05:04 Physical Exam - Physical Exam General Appearance: WD/WN, alert, no apparent distress EENT: No scleral icterus (R), No scleral icterus (L) Neck: normal inspection Respiratory: No respiratory distress Cardiac/Chest: regular rate, rhythm Abdomen: non-tender, soft, distended (improved ), other Skin: normal color, warm/dry Extremities: pedal edema (+1 B/L) Neuro/Psych: no motor/sensory deficits, alert, normal mood/affect, oriented x 3 ICD10 Worksheet Patient Problems: Problems Problem Status Onset Acute blood loss anemia Acute Angina pectoris, unstable Acute CAD (coronary artery disease) Acute Ileus, postoperative Acute Prediabetes Acute S/P coronary artery bypass graft x 3 Acute
[2017-01-13] MEDS ORDERED: FUROSEMIDE 100 MG/10 ML VIAL IVP ONE (08:27)
[2017-01-13] MEDS ORDERED: POTASSIUM CL 20 MEQ TAB PO ONE (08:28)
[2017-01-13] MEDS ORDERED: MAGNESIUM CITRATE 300 ML BOTTLE PO ONE (08:29)
[2017-01-13] MEDS: MULTIVITAMINS 1 EACH TAB PO SCH (08:50)
[2017-01-13] MEDS: PANTOPRAZOLE SODIUM 40 MG TAB PO SCH (08:51)
[2017-01-13] MEDS: ASPIRIN 81 MG CHEWABLE TAB PO SCH (08:51)
[2017-01-13] MEDS: SENNOSIDES/DOCUSATE SODIUM TAB PO SCH ×2 (08:53→20:09)
[2017-01-13] MEDS ORDERED: METOPROLOL TARTRATE 25 MG TAB PO SCH (09:00)
[2017-01-13] MEDS ORDERED: FUROSEMIDE 80 MG in D5W 50 ML IV ONE (09:00)
[2017-01-13] MEDS ORDERED: METOPROLOL TARTRATE 5 MG/5 ML INJ ONE (10:07)
[2017-01-13] MEDS ORDERED: AMIODARONE HCL 150 MG/100 ML BAG (1.5 MG/ML) IV ONE (10:08)
[2017-01-13] MEDS ORDERED: AMIODARONE HCL 200 ML IV ONE (10:10)
[2017-01-13] MEDS ORDERED: AMIODARONE HCL 100 ML IV ONE (10:10)
[2017-01-13] MEDS ORDERED: METOPROLOL TARTRATE 5 MG/5 ML INJ IVP ONE ×3 (10:15→11:15)
--- NOTE | 2017-01-13 10:15 | CPEKG ---
Heart Rate: 166 RR Interval: 361 QRSD Interval: 136 QT Interval: 320 QTC Interval: 533 QRS [place]: -91 T Wave [place]: 46 EKG Severity - ABNORMAL ECG - EKG Impression: ATRIAL FIBRILLATION, V-RATE 0-0 EKG Impression: RBBB AND LAFB EKG Impression: RAPID VENTRICULAR REPONSE Electronically Signed By: Rodrigo Bravo 13-Jan-2017 23:07:33
[2017-01-13] MEDS ORDERED: METOPROLOL TARTRATE 25 MG TAB PO ONE (10:35)
[2017-01-13] MEDS ORDERED: NS 500 ML IV ONE (10:58)
--- NOTE | 2017-01-13 12:56 | PDCARPN ---
Cardiology Progress Note Assessment/Plan: Assessment/plan: 61-year-old male with coronary disease, hypertension, impaired fasting glucose and known bifascicular block. Was admitted with unstable angina on January 07 and underwent coronary angiogram with Dr. Roche. This showed critical ostial disease of the LAD, left circumflex, and ramus vessels. Ejection fraction normal. No significant valvular disease. On January 09, he had a 3 vessel CABG (swanson to the LAD, MYNOR to the diagonal, vein graft to left circumflex) and left atrial appendage ligation with Dr. Rodrigo Maurer. He has done well postoperatively. This morning he went into atrial fibrillation with rapid ventricular response. He was given IV Lopressor 5 mg, IV amiodarone bolus and drip, and started on Eliquis. He is now in sinus rhythm. 1. Coronary disease status post CABG: Continue aspirin, beta-parviz. Add high -dose atorvastatin. 2. Paroxysmal atrial fibrillation: Currently in sinus rhythm. Agree with amiodarone loading with transition to oral amiodarone tomorrow. Amiodarone would be short term, likely about 1 month. Continue beta-parviz. We will have to be careful with beta-parviz and amiodarone in the setting of his bifascicular block. Eliquis for CHADS2 Vasc score of 3, possibly 5. He does have a history of CVA on his chart. Bleeding risks of this medication were discussed with the patient. 3. Carotid disease: This was nonobstructive based on CT angiogram. Add high- dose atorvastatin and continue aspirin. 4. Hypertension: Well controlled 5. Impaired fasting glucose: Hemoglobin A1c was 6.2%. Will need to work on diet and exercise. Consider medical therapy in the outpatient setting. 6. Bifascicular block EKG: This has been known in the past. Continue to monitor this in the outpatient setting. No current indication for pacemaker. 01/13/17 13:03 Subjective: Juliocesar did notice diaphoresis, chest discomfort, palpitations, and lightheadedness when he had rapid atrial fibrillation this morning. This arrhythmia started after drinking some magnesium citrate and getting up to urinate. He has not had previous arrhythmia. Otherwise he has felt well postoperatively with tolerable sternotomy pain. Reviewed/Discussed With: other (Dr. Rodrigo Maurer) Time Spent With Patient: 20 minutes Objective: Vital Signs (8 Hrs) Temp Pulse Resp BP Pulse Ox 01/13/17 10:55 147 H 78/59 L 01/13/17 10:49 131 H 96/67 L 01/13/17 10:34 123 H 106/73 01/13/17 10:24 118 H 106/89 H 01/13/17 10:10 140 H 108/82 H 01/13/17 10:08 160 H 108/82 H 01/13/17 10:03 87 128/73 H 01/13/17 07:49 36.6 C 87 19 110/65 96 01/13/17 05:54 36.9 C 79 16 136/69 H 94 Intake/Output (24 Hrs) 01/12/17 01/13/17 01/14/17 05:59 05:59 05:59 Intake Total 950 250 Output Total 640 3200 725 Balance 310 -2950 -725 Intake: Oral (ml) 950 250 Output: Urine (ml) 400 3200 725 Urinal 400 3200 725 Chest Tube Output (ml) 240 Location 1 Mediastinal 65 Location 2 85 Location 3 90 Other: Weight 104.5 kg 101.1 kg Intake Quantity Yes Sufficient Number of Voids Urinal 1 3 NAD, lying at 30 degrees RRR no m/r/g Decreased breath sounds right base Trace to mild bilateral ankle edema Result Diagrams: 01/13/17 05:30 01/13/17 05:30 EKG: Atrial fibrillation with rapid ventricular response. Bifascicular block with right bundle-branch block and left anterior fascicular block. Previous EKG show bifascicular block and sinus rhythm. Telemetry: AF with RVR earlier this morning. Currently sinus rhythm ICD10 Worksheet Patient Problems: Problems Problem Status Onset Angina pectoris, unstable Acute Ileus, postoperative Acute Prediabetes Acute Acute blood loss anemia Acute S/P coronary artery bypass graft x 3 Acute CAD (coronary artery disease) Acute
[2017-01-13] MEDS: APIXABAN 5 MG TAB PO SCH ×2 (13:43→20:10)
[2017-01-13] MEDS: ATORVASTATIN CALCIUM 40 MG TAB PO SCH (13:43)
[2017-01-13] MEDS: ACETAMINOPHEN 325 MG TAB PO PRN (16:20)
[2017-01-13] MEDS ORDERED: AMIODARONE HCL 540 MG in D5W 300 ML IV ONE (16:30)
[2017-01-13 16:33] LABS: POTASSIUM 4.1 mEq/L (3.5-5.2)
[2017-01-13] MEDS: METOPROLOL TARTRATE 25 MG TAB PO SCH (20:10)
[2017-01-13] MEDS: HYDROCODONE/APAP 5/325 TAB PO PRN ×2 (20:12→22:54)
[2017-01-14 08:11] VITALS: PULSE 68; TEMP 98.1
[2017-01-14] MEDS: ATORVASTATIN CALCIUM 40 MG TAB PO SCH (08:18)
[2017-01-14] MEDS: PANTOPRAZOLE SODIUM 40 MG TAB PO SCH (08:19)
[2017-01-14] MEDS: ASPIRIN 81 MG CHEWABLE TAB PO SCH (08:19)
[2017-01-14] MEDS: APIXABAN 5 MG TAB PO SCH (08:19)
[2017-01-14] MEDS: ACETAMINOPHEN 325 MG TAB PO PRN (08:19)
[2017-01-14] MEDS: MULTIVITAMINS 1 EACH TAB PO SCH (08:19)
[2017-01-14] MEDS: SENNOSIDES/DOCUSATE SODIUM TAB PO SCH (08:20)
[2017-01-14] MEDS: METOPROLOL TARTRATE 25 MG TAB PO SCH (08:20)
--- NOTE | 2017-01-14 08:28 | SOAPPROG ---
SOAP Progress Note Assessment/Plan: POD #5: CABGx3 (SALAMANCA-LAD, MYNOR-D1, SVG-PLCX), AtriClip MOON, EVH right thigh, vein exposure left thigh Unstable angina s/p CABGx3 - Continue ASA, statin, BB - DVT prophylaxis with Eliquis - All wires/tube removed - Continue Lasix for dependent edema Acute blood loss anemia - Stable without the need for blood product transfusions Pre-diabetes (HgbA1c 6.2) - Discussed with pt the importance of lifestyle changes, including weight loss, diet changes, daily exercise, and the need for future monitoring Abdominal distension, early narcotic induced ileus - Resolved with supportive care Post-operative rapid atrial fibrillation - Amiodarone started and BB increased - Eliquis for thromboprophylaxis Disposition - Home today without services Subjective: No complaints. +BM. Feels ready to go home. Objective: Vital Signs Temp Pulse Resp BP Pulse Ox 36.7 C 68 18 122/60 H 94 01/14/17 08:00 01/14/17 08:00 01/14/17 08:00 01/14/17 08:00 01/14/17 08:00 Laboratory Results 01/13/17 05:30 01/14/17 06:25 01/13/17 01/14/17 01/15/17 05:59 05:59 05:59 Intake Total 250 350 Output Total 3200 2425 Balance -2950 -2075 PT 13.2 SEC (12.0-15.0) 01/08/17 05:04 INR 1.01 (0.83-1.16) 01/08/17 05:04 Physical Exam - Physical Exam General Appearance: WD/WN, alert, no apparent distress EENT: No scleral icterus (R), No scleral icterus (L) Neck: normal inspection Respiratory: No respiratory distress Cardiac/Chest: regular rate, rhythm Abdomen: non-tender, soft, No distended Skin: normal color, warm/dry Extremities: pedal edema Neuro/Psych: no motor/sensory deficits, alert, normal mood/affect, oriented x 3 ICD10 Worksheet Patient Problems: Problems Problem Status Onset Acute blood loss anemia Acute Angina pectoris, unstable Acute CAD (coronary artery disease) Acute Ileus, postoperative Acute Prediabetes Acute S/P coronary artery bypass graft x 3 Acute
[2017-01-14] MEDS ORDERED: AMIODARONE HCL 200 MG TAB PO SCH (09:00)
[2017-01-14] MEDS ORDERED: FUROSEMIDE 40 MG TAB PO SCH (09:15)
[2017-01-14] MEDS ORDERED: POTASSIUM CL 20 MEQ TAB PO SCH (09:15)
--- NOTE | 2017-01-14 09:21 | PDDCSUM ---
Discharge Summary Discharge Summary: ADMISSION DATE: 01/07/17 DISCHARGE DATE: 01/14/17 ADMISSION DX: 1. Unstable angina 2. Severe 2-vessel CAD 3. Pre-diabetes DISCHARGE DX: 1. Unstable angina 2. Severe 2-vessel CAD 3. Pre-diabetes 4. Post-operative acute blood loss anemia 5. Narcotic induced ileus 6. Post-operative atrial fibrillation PROCEDURES 01/09/17, Rodrigo Maurer: 1. CABGx3 (SALAMANCA-LAD, MYNOR-D1, SVG-PLCX), AtriClip MOON, EVH right thigh, vein exposure left thigh HOSPITAL COURSE BY PROBLEM LIST 1. Unstable angina with severe 2-vessel CAD s/p CABG x3 - well-tolerated post- operative course. Beta-parviz, aspirin, and statin prescribed. 2. Pre-diabetes - HgbA1c of 6.2. Discussed with patient the importance of lifestyle changes, including weight loss, diet changes, daily exercise, and the need for future monitoring 3. Post-operative acute blood loss anemia - stable without the need for blood product transfusions. 4. Narcotic induced ileus - resolved with conservative measures. 5. Post-operative atrial fibrillation - quick conversion to sinus rhythm with metoprolol and amiodarone. Eliquis started for thromboprophylaxis. CONDITION Good DISPOSITION Home, self-care ACTIVITY Pt was instructed on sternal precautions, activity limitations, and which problems to call [facility] with. Please see Discharge Plan in chart for specifics. D/C MEDICATIONS New 1. Acetaminophen [Tylenol 325mg (*)] 650 mg PO Q4HRS PRN 2. Amiodarone HCl [Pacerone (*)] 200 mg PO BID 3. Apixaban [Eliquis] 5 mg PO BID 4. Atorvastatin Calcium [Lipitor 40 mg (*)] 80 mg PO DAILY 5. Furosemide [Lasix 40 MG (*)] 40 mg PO DAILY 6. Hydrocodone/APAP 5/325 [[place] 5/325 (*)] 1 - 2 tab PO Q4HRS PRN 7. Metoprolol Tartrate [Lopressor 25 mg (*)] 25 mg PO BID 8. Potassium Cl [Klor-Con 20 meq (*)] 20 meq PO DAILY 9. Oxygen 2L NC continuous for sats > 89% Continue: 1. Aspirin [Aspirin 81mg (*)] 81 mg PO DAILY 2. Loratadine [Claritin 10 mg] 10 mg PO DAILY 3. Multivitamins [Multivitamin (*)] 1 each PO DAILY Discontinue: 1. Lisinopril PENDING STUDIES/LABS 1. CXR prior to surgical follow-up F/U APPOINTMENTS 1. Rodrigo Maurer - 01/22/17, 11:30 AM 2. Ahsan Roche - to be arranged at surgical follow-up
--- NOTE | 2017-01-14 09:25 | PDCARPN ---
Cardiology Progress Note Chief Complaint: patient reports tenderness at incisional site, but no active symptoms suggesting of ischemia. Denies of any shortness of breath Assessment/Plan: Assessment: 61 you male with significant history of CAD (Cath 01/07/2017 3VD, LVEF 65% with no wall motion abnormalities), CABG x3 vessels and left atrial appendage ligation (SALAMANCA to LAD, MYNOR to diagonal, SVG to circ Dr. Maurer on January 09), HTN, carotid artery disease, impaired fasting glucose, bifascicular block. Yesterday into atrial fibrillation with RVR, started IV amiodarone and converted to sinus rhythm. Overnight has maintained sinus rhythm, no malignant arrhythmias pauses noted. Patient reporting no chest pressure pain. VSS. Plan: 1. CAD: S/P CABG, no CP. Cont on ASA, BB and started on Atorvastatin, Will need to have a fasting lipid and liver in 8 weeks. 2. A-fib with RVR: Post op CABG, LA appendage ligation done, patient converted on IV amiodarone, protocol completed. Plan to start him on oral amiodarone at 200 mg p.o. twice daily for 2 weeks, then decrease dosage to 200 mg a day, plan on him only being on this for 1 months time then discontinued. Continue on beta -parviz of metoprolol. Patient has been started on Eliquis for anticoagulation. 3. Carotid artery disease: Etoo-nt-icyyvxty disease, but non flow limiting based off CTA angio 01/08. Anti-platelet therapy of aspirin, started on atorvastatin. 4. Hypertension: Well controlled, continue current medication. 5. Impaired fasting glucose: Hemoglobin A1c 6.2. Multiple discussions with patient regarding need to work on diet exercise. Follow-up PCP as outpatient. 6. Bifascicular Block: Right bundle branch and left anterior fascicular. No AV blocks or pauses noted when on amiodarone metoprolol, continue to monitor Patient is planning to be discharged today, he will follow up with thoracic surgery outpatient setting comma start cardiac rehab. We will plan for him to follow-up with us once released by CT surgery within the next month. 01/14/17 09:22 Subjective: Patient reports no chest pressure suggesting ischemia. Denies of shortness of breath, reports no palpitations, lightheadedness, or near-syncope. Reviewed/Discussed With: other (Dr Maurer, Dr Suarez) Objective: Vital Signs (8 Hrs) Temp Pulse Resp BP Pulse Ox 01/14/17 08:00 36.7 C 68 18 122/60 H 94 01/14/17 06:23 36.8 C 75 19 117/64 96 01/14/17 04:00 69 Intake/Output (24 Hrs) 01/13/17 01/14/17 01/15/17 05:59 05:59 05:59 Intake Total 250 350 Output Total 3200 2425 Balance -250 -9734 Intake: Oral (ml) 250 150 IV Infused (ml) 200 Amiodarone HCl 540 mg In 200 D5w 300 ml @ 16.667 mls/ hr IV ONCE ONE Rx#: [id number] Output: Urine (ml) 3200 2425 Urinal 3200 2425 Other: Weight 101.1 kg 99.9 kg Intake Quantity Yes Sufficient Number of Voids Urinal 3 3 Number of Stools Urinal 1 Result Diagrams: 01/13/17 05:30 01/14/17 06:25 - Physical Exam Constitutional: WDWN, healthy appearing, no apparent distress Cardiovascular: regular rate and rhythm, no rubs, no gallops, systolic murmur (1 -2/6 Left sternal border), pulses symmetric bilat, No jugular vein distention , No carotid bruit Peripheral Pulses: 1+: dorsalis-pedis (R), dorsalis-pedis (L), 2+: carotid (R), carotid (L) Respiratory: other ( Lungs are clear to auscultation, no rhonchi, rales, wheezing noted. No accessary muscle use, intercostal muscle retraction noted.) Gastrointestinal: normoactive bowel sounds, no tenderness Skin: no rashes, warm, other ( Sternotomy incision clean dry and intact no redness swelling or drainage.), No no edema ( +1 peripheral edema bilateral lower extremity to knees.) Neurologic: AAOx3 Psychiatric: cooperative, interactive, following commands ICD10 Worksheet Patient Problems: Problems Problem Status Onset Angina pectoris, unstable Acute Ileus, postoperative Acute Prediabetes Acute Acute blood loss anemia Acute S/P coronary artery bypass graft x 3 Acute CAD (coronary artery disease) Acute
[2017-01-14 12:24] VITALS: BP 128/68; RESP 20; O2SAT 96
== END 2017-01-14 13:21 | disposition home or self-care (01) | DRG 234 ==
LOC: FCATH 13:15 → F2W 16:58 → OBSVTOIN 17:54 → F2W 18:50 → F2N 01-09 13:18 → F2W 01-11 12:00
PROVIDERS: ADMIT Internal Medicine Cardiovascular Disease; ATTEND Internal Medicine Cardiovascular Disease
PROC: B2111ZZ Fluoroscopy of Multiple Coronary Arteries using Low Osmolar Contrast (ICD-10-PCS; 2017-01-07)
PROC: B2151ZZ Fluoroscopy of Left Heart using Low Osmolar Contrast (ICD-10-PCS; 2017-01-07)
PROC: 4A023N7 Measurement of Cardiac Sampling and Pressure, Left Heart, Percutaneous Approach (ICD-10-PCS; 2017-01-07)
PROC: 06BQ4ZZ Excision of Left Saphenous Vein, Percutaneous Endoscopic Approach (ICD-10-PCS; principal; 2017-01-09 13:30)
PROC: 5A1221Z Performance of Cardiac Output, Continuous (ICD-10-PCS; principal; 2017-01-09 13:30)
PROC: 021109W Bypass Coronary Artery, Two Arteries from Aorta with Autologous Venous Tissue, Open Approach (ICD-10-PCS; principal; 2017-01-09 13:30)
PROC: 02L70CK Occlusion of Left Atrial Appendage with Extraluminal Device, Open Approach (ICD-10-PCS; principal; 2017-01-09 13:30)
PROC: 02100Z9 Bypass Coronary Artery, One Artery from Left Internal Mammary, Open Approach (ICD-10-PCS; principal; 2017-01-09 13:30)
DX: I25.110 Atherosclerotic heart disease of native coronary artery with unstable angina pectoris (principal); D62 Acute posthemorrhagic anemia; K56.7 Ileus, unspecified; R73.03 Prediabetes; I48.91 Unspecified atrial fibrillation; T40.605A Adverse effect of unspecified narcotics, initial encounter; I10 Essential (primary) hypertension; N52.9 Male erectile dysfunction, unspecified; G43.009 Migraine without aura, not intractable, without status migrainosus; E66.9 Obesity, unspecified; Z86.73 Personal history of transient ischemic attack (TIA), and cerebral infarction without residual deficits
CPT/HCPCS: 82947-QW; 92610-GN; 97116-GP; 97161-GP; 97165-GO; 97530-GO; 97530-GP; 97535-GO; C1769; J0153; J0282; J0690; J1265; J1644; J1815; J1940; J2001; J2150; J2250; J2260; J2370; J2405; J2440; J2704; J2720; J2765; J2930; J3010; J7060; P9041; Q9967

== ENCOUNTER → 2017-01-21 | Outpatient (CLI) | payer OTHER | LOC: FIMAGING 12:33 | PROVIDERS: ATTEND Thoracic Surgery (Cardiothoracic Vascular Surgery) | DX: Z95.1 Presence of aortocoronary bypass graft (principal); J98.11 Atelectasis ==

== ENCOUNTER → 2017-02-12 | Outpatient (CLI) | payer OTHER | LOC: FIMAGING 14:28 | PROVIDERS: ATTEND Thoracic Surgery (Cardiothoracic Vascular Surgery) | DX: J98.11 Atelectasis (principal); Z95.1 Presence of aortocoronary bypass graft; Z98.890 Other specified postprocedural states ==

== ENCOUNTER 2017-09-01 20:28 | Observation (INO) | payer OTHER ==
--- NOTE | 2017-09-01 20:39 | CPEKG ---
Heart Rate: 82 RR Interval: 732 P-R Interval: 148 QRSD Interval: 142 QT Interval: 400 QTC Interval: 468 P [place]: 72 QRS [place]: -73 T Wave [place]: 72 EKG Severity - ABNORMAL ECG - EKG Impression: SINUS RHYTHM EKG Impression: RBBB AND LAFB EKG Impression: LATERAL INFARCT, OLD Electronically Signed By: Migue Pratt 01-Sep-2017 23:29:04
--- NOTE | 2017-09-01 21:28 | EDPHY ---
H & P Time Seen by Provider: 09/01/17 20:39 HPI/ROS: Chief complaint. Near syncope HPI. 62-year-old male with known coronary artery disease had some alcohol tonight and took 1 puff of THC and then had near syncope. He slumped against the wall to the floor. He was not hurt. He had strong burning in his chest which continues. He also had some shortness of breath. He had coronary artery bypass graft on 01/09/2017. He is not sick. No fever or cough. No abdominal pain. No unusual leg pain or swelling. No similar symptoms previously ROS Constitutional. no fever/chills, no weakness Eyes. no problems with vision ENT. no sore throat, no nasal drainage Cardiovascular. Chest pain Respiratory. shortness of breath, no cough Abdominal. no abdominal pain, no nausea/vomiting, no diarrhea . no problems urinating MS. no calf pain/swelling, no neck/back pain, no joint pain Skin. no rash Lymph. no swollen glands Neuro. Near syncope Past Medical/Surgical History: Coronary artery disease, coronary artery bypass graft Social History: , nonsmoker, recent alcohol Smoking Status: Former smoker Physical Exam: General Appearance: Alert pleasant well-developed male mild distress vital signs are stable Eyes: Pupils equal and round no pallor or injection. ENT, Mouth: Mucous membranes are moist. Respiratory: There are no retractions, lungs are clear to auscultation. Cardiovascular: Regular rate and rhythm. Gastrointestinal: Abdomen is soft and nontender, no masses, bowel sounds normal. Neurological: Awake and alert, sensory and motor exams grossly normal. Skin: Warm and dry, no rashes. Musculoskeletal: Neck is supple nontender. Extremities symmetrical, full range of motion. Psychiatric: Patient is oriented X 3, there is no agitation. Constitutional: Initial Vital Signs Temperature (C) 36.8 C 09/01/17 20:41 Heart Rate 80 09/01/17 20:41 Respiratory Rate 22 H 09/01/17 20:41 Blood Pressure 147/47 H 09/01/17 20:41 O2 Sat (%) 94 09/01/17 20:41 O2 Delivery Mode Nasal Cannula Allergies/Adverse Reactions: No Known Allergies Allergy (Verified 09/01/17 20:40) Home Medications: Medication Instructions Recorded Aspirin [Aspirin 81mg (*)] 81 mg PO DAILY 01/07/17 Atorvastatin Calcium [Lipitor 40 80 mg PO DAILY #30 tab 01/14/17 mg (*)] Metoprolol Tartrate [Lopressor 25 25 mg PO BID #60 tab 01/14/17 mg (*)] Lisinopril 09/01/17 Medical Decision Making - Diagnostics EKG Interpretation: EKG interpreted by me shows normal sinus rhythm with normal interval. Left axis deviation. Interventricular conduction delay with right bundle branch block and left anterior fascicular block. No significant ST elevation or depression. No arrhythmia. The rate is 82 Imaging Results: Imaging Impressions Chest X-Ray 09/01/17 21:40 Impression: No acute findings in the chest. Procedures: IV normal saline, monitor ED Course/Re-evaluation: Re-evaluation 10:30 p.m.--patient stable though continues to have some burning left anterior chest discomfort. The patient, his , and I discussed imaging and lab an EKG findings. We discussed treatment plan including recommendation for admission. They expressed understanding and agreement I consulted and discussed the case with Dr. Jasmine, hospitalist, who agrees to the admission Differential Diagnosis: Likely the syncope was due to alcohol and THC consumption. However the patient has a significant cardiac history and had a coronary artery bypass in January 2017. He continues to have chest discomfort. Workup is normal at this point other than mild alcohol intoxication. He does have right bundle and left anterior fascicular blocks on his EKG however otherwise looks nonacute. Troponin is negative. I have considered of course acute coronary syndrome - Data Points Laboratory Results: Laboratory Results 09/01/17 20:30 09/01/17 20:30 09/01/17 09/01/17 20:30 20:30 WBC 8.75 10^3/uL 10^3/uL (3.80-9.50) RBC 4.84 10^6/uL 10^6/uL (4.40-6.38) Hgb 14.3 g/dL g/dL (13.7-17.5) Hct 44.1 % % (40.0-51.0) MCV 91.1 fL fL (81.5-99.8) MCH 29.5 pg pg (27.9-34.1) MCHC 32.4 g/dL g/dL (32.4-36.7) RDW 12.8 % % (11.5-15.2) Plt Count 240 10^3/uL 10^3/uL (150-400) MPV 10.0 fL fL (8.7-11.7) Neut % (Auto) 30.4 % L % (39.3-74.2) Lymph % (Auto) 52.9 % H % (15.0-45.0) Crisp % (Auto) 12.5 % % (4.5-13.0) Eos % (Auto) 3.2 % % (0.6-7.6) Baso % (Auto) 0.9 % % (0.3-1.7) Nucleat RBC Rel Count 0.0 % % (0.0-0.2) Absolute Neuts (auto) 2.66 10^3/uL 10^3/uL (1.70-6.50) Absolute Lymphs (auto) 4.63 10^3/uL H 10^3/uL (1.00-3.00) Absolute Monos (auto) 1.09 10^3/uL H 10^3/uL (0.30-0.80) Absolute Eos (auto) 0.28 10^3/uL 10^3/uL (0.03-0.40) Absolute Basos (auto) 0.08 10^3/uL 10^3/uL (0.02-0.10) Absolute Nucleated RBC 0.00 10^3/uL 10^3/uL (0-0.01) Immature Gran % 0.1 % % (0.0-1.1) Immature Gran # 0.01 10^3/uL 10^3/uL (0.00-0.10) Sodium 144 mEq/L mEq/L (135-145) Potassium 3.8 mEq/L mEq/L (3.5-5.2) Chloride 107 mEq/L mEq/L (97-110) Carbon Dioxide 23 mEq/l mEq/l (22-31) Anion Gap 14 mEq/L mEq/L (8-16) BUN 14 mg/dL mg/dL (7-23) Creatinine 1.0 mg/dL mg/dL (0.7-1.3) Estimated GFR > 60 Glucose 97 mg/dL mg/dL (70-100) Calcium 9.8 mg/dL mg/dL (8.5-10.4) Troponin I < 0.012 ng/mL ng/mL (0.000-0.034) Lipase 398 IU/L H IU/L (23-300) Ethyl Alcohol 113 mg/dL H mg/dL (0-10) Medications Given: Discontinued Medications Al Hydroxide/Mg Hydroxide (Maalox Susp) 30 ml PO ONCE ONE Stop: 09/01/17 21:41 Last Admin: 09/01/17 22:14 Dose: 30 ml Sodium Chloride (Ns) 1,000 mls @ 0 mls/hr IV EDNOW ONE; Wide Open PRN Reason: Protocol Stop: 09/01/17 21:41 Last Admin: 09/01/17 22:14 Dose: 1,000 mls Departure - Departure Disposition: [facility] Inpatient Acute Clinical Impression: Near syncope Chest pain Qualifiers: Chest pain type: unspecified Qualified Code(s): R07.9 - Chest pain, unspecified Condition: Fair Referrals: Emmett Roche MD [Primary Care Provider] - As per Instructions
[2017-09-01] MEDS ORDERED: NS 1,000 ML IV ONE (21:40)
[2017-09-01] MEDS ORDERED: MAG HYDROX/AL HYDROX/SIMETH 30 ML UDCUP PO ONE (21:40)
[2017-09-01 21:45] LABS: PLATELET COUNT 240 10^3/uL (150-400)
[2017-09-01] MEDS ORDERED: ACETAMINOPHEN 325 MG TAB PO PRN (23:29)
[2017-09-01] MEDS ORDERED: ONDANSETRON 4 MG/2 ML VIAL IVP PRN (23:29)
[2017-09-01] MEDS ORDERED: LORazepam 0.5 MG TAB PO PRN (23:29)
[2017-09-01] MEDS ORDERED: NITROGLYCERIN 0.4 MG BTL SL PRN (23:32)
[2017-09-02 00:28] VITALS: O2SAT 92
[2017-09-02] MEDS ORDERED: MBX SOLN 30 ML BOTTLE PO PRN (03:20)
--- NOTE | 2017-09-02 04:26 | GHP ---
[f rep st] HISTORY AND PHYSICAL DATE OF ADMISSION: 09/01/2017 SOURCE: Patient provides history, appears fairly reliable. His EMR was reviewed, and case discussed with ED provider. CHIEF COMPLAINT: Presyncope. HISTORY OF PRESENT ILLNESS: This is a very pleasant, 62-year-old gentleman with past medical history significant for coronary artery disease with recent history of 3-vessel CABG in January 2017 who presen ts to the emergency department this evening following a near-syncopal episode while at home. Patient reports that he had several drinks this evening. He typically has a few beers and a few cocktails. He also did a trial use of marijuana. Shortly after he inhaled 1 puff, patient developed a coughing fit without any nausea or vomiting. He subsequently tried to go walk to the bathroom during this ep isode when he leaned into the wall and slid down, feeling quite lightheaded. Patient denies any prod uctive cough. No fevers, chills, or recent illnesses. Patient does report bilateral chest burning s ensation with inspiration. He also developed a burning-type sensation down his esophagus into his ab domen. He denies that this is similar to his anginal-type pain prior to his CABG. He also states he recently was seen by Dr. Roche, and was given a clean bill of health. Patient has not had any rece nt complaints of exertional angina. Patient does report a recent episode of constipation which was r elieved earlier by use of oral [id number] laxative. He denies any melena, hematochezia. Does report a little bit of increased weight gain, he suspects due to his constipation, but he monitors hi s weight daily following his CABG. Patient denies any shortness of breath. No dyspnea on exertion. REVIEW OF SYSTEMS: GENERAL: Patient denies any fevers, chills. SKIN: No rashes, sores. ENT: Katherine blum does report some rhinorrhea currently. He has a little bit of burning in his throat, but no marquis nophagia. EYES: Patient denies any acute changes in vision or ocular pain. CV: Central chest burn ing bilaterally, as noted above, per HPI. He denies any palpitations. RESPIRATORY: Patient reports shortness of breath, cough that is nonproductive, and burning lungs bilaterally with inspiration. G I: Patient denies any nausea, vomiting, or diarrhea. He was constipated earlier, as noted above, re solved after laxative. No melena, hematochezia. : No dysuria, hematuria. MUSCULOSKELETAL: Marisa ent denies any acute joint pains. Just his chronic issues. No myalgias. NEURO: Patient does repor t a headache following administration of nitroglycerin. Otherwise, denies any numbness, tingling. N o focal deficits. PSYCHIATRIC: Patient does report some increased stress, usual stressors related t o daily living. He denies any SI or HI at this time. Remainder of review of systems negative, excep t as noted above. ALLERGIES: No known drug allergies. HOME MEDICATIONS: Aspirin 81 mg p.o. daily, atorvastatin 80 mg p.o. at h.s., metoprolol 25 mg b.i.d. tartrate. PAST MEDICAL HISTORY: Significant for coronary artery disease; prediabetes; status post cardiac cath and CABG, 3 vessel, in January 2017. PAST SURGICAL HISTORY: Significant for CABG and cath. FAMILY HISTORY: Patient is adopted. He does not know his family history. He has several children w ho are all healthy. SOCIAL HISTORY: Patient is , lives with his . He does not smoke tobacco, but had a remot e history. He does drink alcohol on a daily basis. Patient reports 2-3 ounces daily of liquor and b eer. He denies any history of withdrawals or tremors. Drug use: Patient denies any routine use. He had a 1-time use of marijuana, as noted per HPI, which he does not plan to resume. He denies any other illicit drug use. CODE STATUS: DNR, DNI. PHYSICAL EXAMINATION: VITALS: Upon arrival to the emergency department, blood pressure 147/47, hear t rate 80, respiratory rate 22, O2 sat 94% on room air with temperature 36.8. Vitals available time of interview: Blood pressure 117/57, heart rate 76, respiratory rate 16, O2 sat 92% on room air with temperature 36.1. GENERAL: No acute distress. Pleasant, adult gentleman is lying quietly in bed, awake. HEAD: Normocephalic, atraumatic. EYES: Extraocular muscles grossly intact. Pupils equal, round, react to light bilaterally, and symmetric. No scleral icterus or conjunctival injection. ENT : Mucous membranes appear moist. No oropharyngeal erythema, exudates. Dentition is intact. NECK: Supple. Trachea midline. CV: Regular rate and rhythm. No murmurs, rubs, or gallops appreciated. Slightly distant heart sounds. RESPIRATORY: Lungs are clear to auscultation bilaterally. No wheez es, rales, or rhonchi appreciated. Unlabored breathing. ABDOMEN: Obese, soft, nontender to palpati on. No rebound, guarding, or masses appreciated. : No suprapubic tenderness to palpation. No Fo wolf catheter in place. EXTREMITIES: Patient with some trace pretibial edema. Otherwise, 2+ pedal p ulses bilaterally and symmetric. He has some chronic skin changes, bilateral lower extremities. [place] RO: Grossly nonfocal. Cranial nerves 2-12 are intact, symmetric bilaterally. Patient awake, alert, and oriented x4. Strength 5/5 in upper and lower extremities bilaterally and symmetric. Patient is able to sit up independently. MUSCULOSKELETAL: Strength, as noted above, is normal. PSYCHIATRIC: Patient's thought process, content, questions appear appropriate at this time. LABORATORY DATA: WBC 8.75, H and H 14.3 and 44.1, MCV 91.1, platelet count is 240, neutrophil percen t 30.4, no bands. Sodium is 144, potassium is 3.8, chloride 107, CO2 is 23, anion gap 14, BUN is 14, creatinine 1.0, GF R greater than 60, glucose at 97, calcium 9.8, total bili 0.4, ALT is 59, AST is 38, alk phos is 81. Troponin is negative. Total protein 6.7, albumin is 4.1, lipase is 398. EKG reviewed myself, showing normal sinus rhythm in the 80s with a right bundle branch block and left anterior fascicular block which are stable. Inferior Q-waves present, stable. QTc is 468. Chest x-ray: Image and report were reviewed by myself, showing decreased lung volumes. No pneumotho rax, focal consolidations, or pleural effusions. Heart size is normal for portable technique. Left atrial appendage clip is noted. Cervical ribs noted, sternotomy wires intact. ASSESSMENT AND PLAN: Very pleasant, 62-year-old gentleman who presents following a presyncopal episo de at home. 1. Presyncope. Based off history, this sounds like it is possibly a vagal response following a coug dave fit. Patient has also been endorsing some increased constipation today. Orthostatics are still pending, as patient is slightly unsteady on his feet. He remains slightly inebriated with elevated alcohol level. He admits to smoking 1 puff of marijuana with subsequent development of bronchospasm. He does report some bilateral chest burning, worse with inspiration, likely related to acute reacti ve airway, potentially in setting of inhalation. Patient without any hypoxia or exacerbation symptom s at this time. Will continue to monitor and provide supportive care. Patient does not appear dehyd rated, and diet is advanced, so we will encourage oral hydration. 2. Bronchospasm related to marijuana use. Patient without any plans to utilize again. 3. Chest burning, likely related to possible esophagitis and/or acute bronchitis/reactive airway. P atient reports that gastrointestinal cocktail did improve his symptoms slightly, so will re-dose this . Will also add Protonix. I also had a discussion with the patient regarding his daily use of alcoh ol. Could be contributing and lead to esophagitis. Cessation or decreased use was recommended, part icularly in setting of acute symptoms. Encourage patient to follow up with his primary care provider for further discussion. 4. Elevated lipase. Less than 3 times upper limit of normal in patient without any typical symptoms of pancreatitis. This is likely related to patient's acute alcohol intake. He has no abdominal emeka n upon examination. This is not pancreatitis. 5. History of coronary artery disease. Resume patient's aspirin, Plavix, beta blockers, and statin. Pharmacy to reconcile medication list in the a.m. Monitor on telemetry. EKG in the morning. Trop onin in the morning. 6. Fluid, electrolyte, nutrition. Cardiac diet is ordered. Electrolyte monitoring; replacement, if needed. 7. Prophylaxis. Proton pump inhibitor, sequential compression devices, Lovenox. 8. COR status is do not resuscitate, do not intubate. DISPOSITION: Patient admitted to observation at this time on PCU, given his cardiac history, for javier se telemetry monitoring. /[id number]/MODL
[2017-09-02 08:45] VITALS: RESP 14; TEMP 98
--- NOTE | 2017-09-02 08:59 | CPEKG ---
Heart Rate: 65 RR Interval: 923 P-R Interval: 164 QRSD Interval: 138 QT Interval: 424 QTC Interval: 441 P [place]: 14 QRS [place]: -58 T Wave [place]: 39 EKG Severity - ABNORMAL ECG - EKG Impression: SINUS RHYTHM EKG Impression: RBBB AND LAFB Electronically Signed By: Leonardo Beaver 02-Sep-2017 09:54:12
[2017-09-02] MEDS ORDERED: PANTOPRAZOLE SODIUM 40 MG TAB PO SCH (09:00)
[2017-09-02] MEDS ORDERED: ASPIRIN 81 MG CHEWABLE TAB PO SCH (09:15)
--- NOTE | 2017-09-02 10:10 | ECHO ---
[email or web address] [address] [address] Main: [phone] Fax: Transthoracic Echocardiogram Name: TAVIA GOODE MR#: [id number] Study Date: 09/02/2017 Study Time: 09:25 AM Date of : 1955 Age: 62 year(s) Height: 190.5 cm (75 in.) Weight: 102.06 kg (225 lb.) BSA: 2.31 m2 Gender: Male Examination: Echo Indication: Near Syncope, Hx of CABG, RBBB, Eval LV Fx Image Quality: Contrast: Requested by: Bogdan Griggs BP: 126 mmHg/64 mmHg Heart Rate: Rhythm: Indication: Near Syncope, Hx of CABG, RBBB, Eval LV Fx Procedure Staff Client Support Manager: Natanael Muller RDCS Reading Physician: Eladio Westbrook MD Requesting Provider: Conclusions: Normal size left ventricle. No LV hypertrophy. Global hypercontractility of the left ventricle. EF is 62 %. Diastolic dysfunction is present. . Mild mitral valve leaflet calcification is present. No mitral stenosis is present. The aortic valve is tri-leaflet and functions normally. There is no aortic valve regurgitation. Measurements: Chambers Valvular Assessment AV/MV Valvular Assessment TV/PV Normal Normal Normal Name Value Range Name Value Range Name Value Range Ao Betty (MM): 2.9 cm (2.2 cm-3.7 AV Vmax: 1.51 m/s (1 m/s-1.7 TR Vmax: 3.04 mm/s ( - ) cm) m/s) TR PGmax: 37 mmHg ( - ) IVSd (2D): 1.0 cm (0.6 cm-1.1 AV maxP mmHg ( - ) syst. PAP: 42 mmHg ( - ) cm) LVOT Vmax: 1.37 m/s (0.7 m/s-1.1 PV Vmax: 1.32 m/s (0.6 m/s-0.9 LVDd (2D): 4.4 cm (4.2 cm-5.9 m/s) m/s) cm) MV E Vmax: 1.29 m/s ( - ) PV PGmax: 7 mmHg ( - ) LVDs (2D): 3.0 cm (2.1 cm-4 MV A Vmax: 0.96 m/s ( - ) cm) MV E/A: 1.34 ( - ) LVPWd (2D): 1.2 cm (0.6 cm-1 cm) LVEF (2D): 62 (>=54 %) Continued Measurements: Chambers Valvular Assessment AV/MV Valvular Assessment TV/PV Patient: TAVIA GOODE Study Date: 09/02/2017 Page 1 of 2 09:25 AM Name Value Name Value Name Value LADs Lon.1 cm MV E' Septal: 0.06 m/s CVP (est.): 5 mmHg LA Area: 17.4 cm2 MV E/E' Septal: 22.80 LA Volume: 45 ml MV E/E' Lateral: 14.20 LA Volume Index: 19.5 ml/m2 Findings: Left Ventricle: Normal size left ventricle. No LV hypertrophy. Global hypercontractility of the left ventricle. EF is 62 %. No regional wall motion abnormality. Diastolic dysfunction is present. . Right Ventricle: Normal size right ventricle. Left Atrium: The left atrium is normal in size. Right Atrium: The right atrium is normal in size. Mitral Valve: Mild mitral valve leaflet calcification is present. No mitral stenosis is present. Aortic Valve: The aortic valve is tri-leaflet and functions normally. There is no aortic valve regurgitation. Tricuspid Valve: The tricuspid valve appears normal. Trivial tricuspid valve regurgitation. The pulmonary artery pressure is mildly increased. Pulmonic Valve: The pulmonic valve is normal in appearance and function. Aorta: The aorta is normal. Pericardium: No pericardial effusion. (No Signature Object) Patient: TAVIA GOODE Study Date: 09/02/2017 Page 2 of 2 09:25 AM [id number]
--- NOTE | 2017-09-02 10:18 | HOSPPROG ---
Hospitalist Progress Note Assessment/Plan: 62 yo M w MJ induced syncope neg trop and tele cad and AF history noted home today see dc summary Subjective: no events tele. 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 Objective: Vital Signs Temp Pulse Resp BP Pulse Ox 36.7 C 67 14 126/64 H 92 09/02/17 08:30 09/02/17 08:30 09/02/17 08:30 09/02/17 08:30 09/02/17 08:30 09/01/17 09/02/17 09/03/17 05:59 05:59 05:59 Intake Total 1250 Balance 1250 - Physical Exam Constitutional: no apparent distress, appears nourished Eyes: PERRL, anicteric sclera Ears, Nose, Mouth, Throat: moist mucous membranes, hearing normal Cardiovascular: regular rate and rhythym, no murmur, rub, or gallop, No systolic murmur Respiratory: no respiratory distress, no rales or rhonchi Gastrointestinal: normoactive bowel sounds, soft, non-tender abdomen Genitourinary: no bladder fullness, No cardenas in urethra Skin: warm, normal color Musculoskeletal: full muscle strength, no muscle tenderness Neurologic: AAOx3, sensation intact bilaterally Psychiatric: interacting appropriately, not anxious Lymph, Heme, Immunologic: no cervical LAD ICD10 Worksheet Patient Problems: Problems Problem Status Onset Chest pain Acute Near syncope Acute Acute blood loss anemia Acute Angina pectoris, unstable Acute CAD (coronary artery disease) Acute Ileus, postoperative Acute Prediabetes Acute S/P coronary artery bypass graft x 3 Acute
[2017-09-02 10:27] VITALS: BP 124/64; PULSE 73
[2017-09-02] MEDS ORDERED: LISINOPRIL 20 MG TAB PO SCH (10:30)
[2017-09-02] MEDS ORDERED: METOPROLOL TARTRATE 25 MG TAB PO SCH (10:30)
--- NOTE | 2017-09-02 10:36 | ASMTCAGE ---
CAGE Do you feel you ought to Answers: No cut down on your drinking or drug use? Do people annoy you by Answers: No criticizing your drinking or drug use? Do you feel guilty about Answers: Yes your drinking or drug use? Do you drink or use drugs Answers: No first thing in the morning (Eye Box Toe Flanger Stitchdowns)? Additional Comments Pt expresses guilt regarding marijuana use and need for ED. Pt does not feel his alcohol use is an issue. States he usually consumes 2 -3 alcoholic beverages a day but yesterday had 5 or 6. Denies frequent binge drinking. Date Signed: 09/02/2017 10:35 AM Electronically Signed By:Karly Pierce RN
--- NOTE | 2017-09-02 11:27 | GCON ---
[f rep st] CONSULTATION CARDIOLOGY CONSULTATION INDICATION FOR CONSULTATION: Near-syncopal event, with reported episode of chest burning post event. HISTORY OF PRESENT ILLNESS: The patient is a 62-year-old male who is known to our service. 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 Armando Landa. He has significant past history that includes CAD with recent CABG x3 vessels in January of 2015 ( SALAMANCA to LAD, MYNOR to diagonal, SVG to circumflex), hypertension, hyperlipidemia , and noted postoperative paroxysmal atrial fibrillation (closure of left atrial appendage done on the day of his bypass surgery). The patient reports he had been in his usual state of health, except for dealing with constipation issues, reporting yesterday after working out he took a laxative and did have a bowel movement, with feeling fatigued afterwards, but with no real other symptoms. Did have a dinner republican last night, admits to drinking up to 5 alcoholic drinks and taking a "hit" off a vape pen with marijuana. Soon afterwards, went to the bathroom (urine), became extremely lightheaded, laid himself down on the floor. Reporting no significant loss of consciousness. Does report did note some mild chest burning when feeling lightheadedness, especially with inspiration, but no similar pressure to what he had prior to his CABG. With previous history of heart disease, was greatly concerned about the symptoms. Was brought to the emergency department for further evaluation. Upon arrival, electrocardiogram was done, showing sinus rhythm, right bundle branch block, left anterior fascicular block (bifascicular block), with no significant pauses or malignant arrhythmias. He has been known to have this bifascicular block. He reports no palpitations prior to his lightheadedness. He reports no recent fevers, chills, night sweats, and reports he has been in better than his usual shape, except for the constipation over the last few weeks. Due to his cardiac history, patient was given a GI cocktail, reporting his chest burning sensation has resolved. He has been started on proton pump inhibitors. Reporting since admission, he has had no chest pain or pressure. Since admission, he [facility], and since that time, he has been in sinus rhythm with no malignant arrhythmias or pauses noted. He reports no symptoms this morning and denies any orthopnea, PND, edema, or symptoms suggestive of TIA or CVA. PAST MEDICAL HISTORY: CAD with recent CABG x3 vessels, hypertension, hyperlipidemia, known bifascicular block (right bundle branch block, left anterior fascicular block). PAST SURGICAL HISTORY: 1. CABG x3 vessels, January 09, 2017. 2. Left atrial appendage ligation during CABG. FAMILY HISTORY: The patient is adopted; he does not know. He has several adult children who are all healthy and well. SOCIAL HISTORY: The patient is . He lives with his . He has a remote history of tobacco abuse, but currently is not using. He does drink alcohol on a daily basis, occasionally binge drinking. He reports he had used marijuana last evening, first time in 20 years. Denies any other illicit drug usage. ALLERGIES: Patient has no known drug allergies. MEDICATIONS: The patient's medications at home include aspirin 81 mg p.o. daily , metoprolol tartrate 12.5 mg p.o. b.i.d., lisinopril 20 mg p.o. daily, atorvastatin 80 mg p.o. h.s. REVIEW OF SYSTEMS: A 10-point review of systems all negative, except as mentioned above. PHYSICAL EXAMINATION: GENERAL APPEARANCE: Medium built, well-groomed male. He is alert and oriented to person, place, time, and situation. Appears to be under no acute distress. VITAL SIGNS: Current vital signs are blood pressure of 126/64, heart rate of 67, respirations 14, saturating 92% on room air, temperature 36.7 degrees Celsius. HEENT: Head is normocephalic. Lips and tongue are pink and moist, with no signs of cyanosis. Conjunctivae pink. NECK: Trachea is midline, +2 carotid pulses bilaterally, no auscultated bruits, no jugular vein distention. RESPIRATORY: Lungs are clear to auscultation, no rhonchi, rales or wheezes. No accessory muscle use. No intercostal muscle retraction noted. CARDIAC: Regular rate, regular rhythm , S1, S2, no S3, S4, gallops, rubs or murmurs noted. ABDOMEN: Soft, nontender , bowel sounds x4 quadrants, no organomegaly, no palpable masses. SKIN: [place], warm, dry, no cyanosis, no clubbing, no peripheral edema. VASCULAR: +2 carotids bilateral, +2 radials bilateral, +2 posterior tibial pulses bilateral. LABORATORY DATA: Laboratory studies drawn on admission showed WBC of 8.75, hemoglobin 14.3, hematocrit of 44.1, platelet count 240. Sodium 144, potassium 3.8, chloride 107, CO2 23, BUN 14, creatinine 1.0, glucose 97, calcium 9.8, total bilirubin 0.4, AST 38, ALT 59, alkaline phosphatase 81, troponin less than 0.012. Total protein 6.7, albumin 4.1, lipase 398. Ethanol alcohol up to 113. Repeated troponin level done this morning at 3:30 a.m. shows less than 0.012. STUDIES: Initial electrocardiogram shows sinus rhythm, with right bundle branch block, left anterior fascicular block (bifascicular block). Chest x-ray done showed no acute cardiopulmonary process, with repeated electrocardiogram unchanged, done this morning. The patient's most recent echocardiogram was done January 08, 2017, the day before his procedure, showing normal LV systolic function, with EF estimated at 71%. Diastolic dysfunction was noted. RVSP was within normal limits, no significant valvular heart disease. The patient is noted to have a 1-week Preventis done on May 18, 2017, showing average heart rate was 71 BPM. Maximum heart rate was 116 BPM. Minimum heart rate was 49 BPM. There was noted to have occasional PVC, predominantly normal sinus rhythm. No malignant arrhythmias noted. ASSESSMENT AND PLAN: 1. Near-syncopal event. Patient reporting near-syncopal event happening after significant EtOH ingestion and marijuana use. Reports no further events since then. Did not actually lose consciousness, reports no palpitations prior to procedure. He is known to have bifascicular block. On continuous cardiac monitoring, he has remained in sinus rhythm with no malignant arrhythmias or pauses. With his previous history of recent coronary artery bypass grafting, I do want him to have an echocardiogram done to evaluate cardiac structure and function. I have also asked the nursing staff to do orthostatic blood pressures on him for further evaluation and consideration. He has had negative troponin and no further episodes of chest pain. Pending results of testing as mentioned above, if all considered normal, then consideration of having patient do a repeated 2-week preventive Holter study to assure no malignant arrhythmias. 2. Chest pressure post syncopal event. Patient reporting chest pressure with deep inspiration post syncopal event, was given a GI cocktail in the emergency department, which resolved all symptoms. He has had negative troponins x2. He does have significant risk of CAD as mentioned above. Symptoms are very atypical for angina, ischemia. Pending echocardiogram as above, if no significant change, patient can follow up in cardiology office, with consideration of doing a stress test at some further point in time as an outpatient. 3. Coronary artery disease: Patient with known history of coronary artery disease, with recent coronary artery bypass grafting in January. No ischemic changes noted on EKG, negative troponin. Resume the patient's aspirin therapy. 4. Hyperlipidemia: Patient with history of coronary artery disease, has been resumed on home atorvastatin. 5. Hypertension: Blood pressure medication has been held at this time due to near-syncopal event. BP is within normal limits. Will hold until home medications until he has orthostatic blood pressures done. Consideration of restarting him back on lisinopril but holding beta parviz, especially with recent near-syncopal event and noted interventricular conduction delay, right bundle branch block, left anterior fascicular block. Thank you for this consultation. We will be glad to follow along with you. /[id number]/MODL MTDD
--- NOTE | 2017-09-02 16:41 | ASMTLACE ---
AMY Length of stay for Answers: 1 day current admission Acuity / Level of Answers: No Care: Did the patient have an inpatient admission? Comorbidities - select Answers: Coronary Atery Disease all that apply Other Notes: CABG 01/2017, prediabete s # of Emergency department Answers: 1-2 visits in the last 6 months Social determinants Answers: History of substance abuse (ETOH, street drugs, prescription drugs, etc.) Score: 8 Date Signed: 09/02/2017 04:40 PM Electronically Signed By:Karly Pierce RN
--- NOTE | 2017-09-02 18:35 | GDS ---
[f rep st] DISCHARGE SUMMARY DISCHARGE DIAGNOSES: 1. Presyncope/vasovagal response to marijuana use. 2. Alcohol intoxication. 3. 3-vessel coronary artery bypass graft in 2017. 4. Pre-diabetes. HOSPITAL COURSE: Please see admission History and Physical by Dr. Monique Candelaria. The patient present ed with presyncope in the setting of having drank alcohol and used a marijuana Vape pen; he had used marijuana a couple of decades. He felt lightheaded and dizzy. He had a positive alcohol level. Whi le here, he had no events on telemetry, had negative troponins, and nonischemic EKG. Followup echoca rdiogram was unremarkable. He was seen by Cardiology in consultation. Discharged home, unchanged me dication regimen. /[id number]/MODL
[2017-09-02] MEDS ORDERED: ATORVASTATIN CALCIUM 40 MG TAB PO SCH (21:00)
== END 2017-09-02 13:35 | disposition home or self-care (01) ==
LOC: EDUNIT# → INTOOBSV 22:49 → F2W 09-02 00:17
PROVIDERS: ADMIT Family Medicine; ATTEND Family Medicine
DX: R55 Syncope and collapse (principal); F12.988 Cannabis use, unspecified with other cannabis-induced disorder; E86.9 Volume depletion, unspecified; F10.129 Alcohol abuse with intoxication, unspecified; R73.03 Prediabetes; Y90.5 Blood alcohol level of 100-119 mg/100 ml; K59.00 Constipation, unspecified; I10 Essential (primary) hypertension; E78.5 Hyperlipidemia, unspecified; Z66 Do not resuscitate; Z95.1 Presence of aortocoronary bypass graft; Z87.891 Personal history of nicotine dependence
CPT/HCPCS: 71045; 93005; 93306; G0378; G0480

== ENCOUNTER → 2018-09-29 | Outpatient (CLI) | payer OTHER | LOC: EMCIMAGING 08:10 | PROVIDERS: ATTEND Internal Medicine Cardiovascular Disease | DX: I65.29 Occlusion and stenosis of unspecified carotid artery (principal); I10 Essential (primary) hypertension | CPT/HCPCS: 70498-PN ==